=== PATIENT | female | born 1960 | race Caucasian/White ===

== ENCOUNTER 2019-07-10 19:08 | Emergency (ER) | payer MEDICARE, SELFPAY ==
[2019-07-10 19:25] VITALS: BP 159/87; PULSE 70; RESP 16; TEMP 37.1; O2SAT 97
--- NOTE | 2019-07-10 20:10 | ED.GENADULT ---
HPI - General Adult General Chief complaint: Upper Respiratory Infection Stated complaint: Sinus/Drainage/Sore Throat/Cough/Wheezing Time Seen by Provider: 07/10/19 20:05 Source: patient and RN notes reviewed Mode of arrival: ambulatory Limitations: no limitations History of Present Illness HPI narrative: 58-year-old female presents with complains of upper respiratory infection symptoms, dry cough, wheezing, intermittent dyspnea, intermittent headache (not the worst of his life) for 3 days. History of COPD. Motrin (last today at 13:00/14:00), Albuterol, and Singulair with some relief. Constant dry cough with intermittent productive cough (yellow phlegm). No chest congestion. Rhinorrhea and nasal congestion. Sore throat. Pain bilaterally. No high fevers, drooling, neck or throat swelling. No chest pain. Exacerbation factors consist of smoke exposure. Denies nausea, vomiting, and abdominal pain. Tolerating liquids well. Menopausal. Some parts of this dictation were generated by voice recognition software and may contain typographical and/or grammatical inaccuracies. Related Data Home Medications Medication Instructions Recorded Confirmed aripiprazole 5 mg tablet 5 mg PO DAILY 03/25/19 07/10/19 citalopram 40 mg tablet 40 mg PO DAILY 03/25/19 07/10/19 famotidine 20 mg tablet 20 mg PO BID tablet 03/25/19 07/10/19 fluticasone 500 mcg-salmeterol 50 1 inhalation INHALATION Q12H 03/25/19 07/10/19 mcg/dose blistr powdr for inhalation guselkumab 100 mg/mL subcutaneous 100 mg SUB-Q .COMPLEX 03/25/19 07/10/19 auto-injector metoprolol succinate 100 mg 100 mg PO DAILY 03/25/19 07/10/19 tablet,extended release 24 hr montelukast 10 mg tablet 10 mg PO DAILY 03/25/19 07/10/19 omeprazole magnesium 20 mg 20 mg PO DAILY 03/25/19 07/10/19 tablet,delayed release quetiapine 100 mg tablet 100 mg PO DAILY tablet 03/25/19 07/10/19 bupropion HCl 75 mg PO DAILY 07/10/19 07/10/19 norethindrone ac-eth estradiol 1 tablet DAILY 07/10/19 07/10/19 [Fyavolv] Allergies Allergy/AdvReac Type Severity Reaction Status Date / Time Penicillins Allergy Unknown Unknown Verified 07/10/19 19:26 Review of Systems Review of Systems: Narrative: CONSTITUTIONAL: Denies fever, chills, sweats. EYES: Denies visual changes, redness, discharge. ENT: Complains of rhinorrhea, congestion, sinus pressure and congestion, sore throat. Denies otalgia. CARDIOVASCULAR: Denies chest pain, palpitations, edema. RESPIRATORY: Complains of dyspnea, wheezing, cough, intermittent productive cough. GASTROINTESTINAL: Denies abdominal pain, nausea, vomiting, diarrhea. GENITOURINARY: Denies dysuria, hematuria, abnormal discharge. SKIN: Denies rash or itching. MUSCULOSKELETAL: Denies acute back pain, joint pain, or myalgia. NEUROLOGIC: Denies numbness or focal weakness. Complains of intermittent [place]. PSYCHIATRIC: Denies anxiety or depression. All other systems reviewed are negative, except as documented in HPI and below. PMFSH Past Medical History Medical History Chronic obstructive pulmonary disease, unspecified Essential hypertension Hyperlipidemia, unspecified Major depressive disorder with single episode, in partial remission Tobacco use Surgical History Surgical History (Updated 07/15/19 @ 17:55 by RAFAEL Evans) History of cervical spinal surgery Family History Family History (Updated 07/15/19 @ 17:57 by RAFAEL Evans) Sibling Asthma Patient's sister is in good health Patient's brother is in good health Mother Cerebrovascular accident Family history of malignant neoplasm Grandparent Carcinoma of colon Hypertension Grandparent Diabetes mellitus Other Family history of coronary artery disease Family history of hepatitis Social History Social History (Updated 07/15/19 @ 17:58 by RAFAEL Evans) Smoking status: Current some day smoker Second hand tobacco smoke exposure: No Alcohol intak
[2019-07-10] MEDS: IPRATROPIUM BR 0.02% INH SOLN 0.5 MG/2.5 ML VIAL INHALATION (20:15)
[2019-07-10] MEDS: ALBUTEROL SULFATE NEB 2.5 MG/3 ML INH INHALATION (20:15)
[2019-07-10] MEDS: predniSONE 20 MG TABLET 60 MG PO (20:16)
[2019-07-10 20:38] VITALS: PULSE 76; RESP 16; O2SAT 97
[2019-07-10 20:44] VITALS: PULSE 76; RESP 16; O2SAT 97
== END 2019-07-10 20:44 | disposition home or self-care (01) ==
PROVIDERS: Emergency Provider Nurse Practitioner Family; PCP Internal Medicine
DX: H66.92 Otitis media, unspecified, left ear (principal); J40 Bronchitis, not specified as acute or chronic; F17.200 Nicotine dependence, unspecified, uncomplicated; J44.9 Chronic obstructive pulmonary disease, unspecified; I10 Essential (primary) hypertension; E78.5 Hyperlipidemia, unspecified; F32.4 Major depressive disorder, single episode, in partial remission
CPT/HCPCS: 94640; 99213; G0463; J7512

== ENCOUNTER 2020-06-05 02:29 | Outpatient (CLI) | payer MEDICARE, SELFPAY ==
[2020-06-05 17:23] LABS: SARS-CoV-2 RNA PCR Negative
== END 2020-06-05 02:30 | disposition home or self-care (01) ==
LOC: ANHCOVIDDT 02:30
PROVIDERS: PCP Nurse Practitioner; Visit Provider Internal Medicine Gastroenterology
DX: Z01.812 Encounter for preprocedural laboratory examination (principal); Z20.822 Contact with and (suspected) exposure to COVID-19
CPT/HCPCS: C9803; U0003

== ENCOUNTER 2020-06-08 01:16 | Day surgery (SDC) | payer MEDICARE, SELFPAY ==
[2020-05-27 10:09] VITALS: BMI 34.0
[2020-06-08 07:49] VITALS: BP 160/79; PULSE 72; RESP 20; TEMP 36.7; O2SAT 98
[2020-06-08] MEDS: LACTATED RINGERS 1,000 ML 150 ML IV CONT (07:59)
--- NOTE | 2020-06-08 08:21 | WPDANESEPPF ---
Anes - Initial Pre Proc Eval Procedure: Operation Date: 06/08/20 09:00 Proposed Procedures p Colonoscopy - Junaid Merchant MD Date/Time: 06/08/20 08:21 Surgeon: Junaid Merchant MD Pre Op Diagnosis: Change in Bowel Habits, Constipation Patient Data Age: 59 Gender: F Height: 5 ft 3 in Weight: 84.6 kg Last Vital Signs Temp 98.0 F 06/08/20 07:49 Pulse 72 06/08/20 07:49 Resp 20 06/08/20 07:49 BP 160/79 H 06/08/20 07:49 Pulse Ox 98 06/08/20 07:49 Allergies Allergy/AdvReac Type Severity Reaction Status Date / Time Penicillins Allergy Intermediate Rash Verified 06/08/20 07:47 Home Medications Medication Instructions Recorded Confirmed Type aripiprazole 5 mg tablet 2.5 mg PO DAILY 03/25/19 05/27/20 History citalopram 40 mg tablet 40 mg PO DAILY 03/25/19 05/27/20 History guselkumab 100 mg/mL subcutaneous 100 mg SUB-Q .COMPLEX 03/25/19 05/27/20 History auto-injector fluticasone propionate [Allergy 1 spray NASAL BID #16 ml 07/10/19 05/27/20 Rx Relief (fluticasone)] hydralazine 50 mg tablet 50 mg PO BID #180 tablet 02/27/20 05/27/20 Rx fluticasone fur. 100 mcg-umeclid See Rx Instructions INHALATION 03/24/20 05/27/20 Rx 62.5 mcg-vilant 25 mcg DAILY #28 each inhalat.powder metoprolol succinate 100 mg 100 mg PO DAILY #90 tablet 05/19/20 05/27/20 Rx tablet,extended release 24 hr albuterol sulfate 0.63 mg INHALATION Q4H PRN 05/27/20 05/27/20 History bupropion HCl 300 mg PO DAILY 05/27/20 05/27/20 History calcium carbonate-vitamin D3 1 tablet PO BID 05/27/20 05/27/20 History [Calcium 600 + D(3)] famotidine 20 mg PO BID 05/27/20 05/27/20 History melatonin 5 mg PO HS 05/27/20 05/27/20 History montelukast 10 mg PO DAILY 05/27/20 05/27/20 History multivitamin [Daily-Duane] 1 tablet PO DAILY 05/27/20 05/27/20 History norethindrone ac-eth estradiol 1 tablet PO DAILY 05/27/20 05/27/20 History trazodone 100 mg PO HS PRN 05/27/20 05/27/20 History albuterol sulfate 90 mcg/actuation See Rx Instructions .ROUTE 06/02/20 Rx aerosol inhaler .COMPLEX #18 gm Patient hx anesthesia problems: none Family hx anesthesia problems: none PMFSH Past Medical History Medical History Bowel habit changes Chronic obstructive pulmonary disease, unspecified Constipation Depression Essential hypertension Hyperlipidemia, unspecified Major depressive disorder with single episode, in partial remission Screening for lipid disorders Tobacco use Surgical History Surgical History History of cervical spinal surgery Family History Family History Sibling Asthma Patient's sister is in good health Patient's brother is in good health Mother Cerebrovascular accident Family history of malignant neoplasm Grandparent Carcinoma of colon Hypertension Grandparent Diabetes mellitus Other Family history of coronary artery disease Family history of hepatitis Social History Social History Smoking packs per day: 1.5 Smoking cigarettes per day: 30.0 Years smoked: 40 Smoking pack-years: 60.00 Smoking status: Former smoker Tobacco type: cigarettes Second hand tobacco smoke exposure: No Alcohol intake: never Substance use: former Substance use type: marijuana and crack/cocaine Last use: 2007 Living arrangements: alone Gender identity (if verbalized by the patient): Female Spiritual care concerns: No Anes - Eval Final PreProcedure Day of Procedure 06/08/20 08:21 Patient weight: obese Heart: regular rate and rhythm Lungs: clear to auscultation Airway: Mallampati scale class II Neurological: alert and oriented Last oral intake: >/= 8 hours ASA classification: III Emergent: no Anesthetic plan: proceed Anesthesia type and monitoring: general GIVS and standard monitoring Informed Co
--- NOTE | 2020-06-08 09:02 | PM.HPGS ---
History of Present Illness History of Present Illness Consent: Risks, benefits, and alternatives have been discussed and questions answered. Patient agrees to proceed with procedure. Chief complaint: Change in Bowel Habits, Constipation Narrative: Keri Golden is a 59 year old female here for colonoscopy, never had one. Review of Systems Constitutional: Constitutional: Denies headache(s) and Denies weakness Eyes: Eyes: Denies blurry vision ENT: Reports Normal hearing present, Denies headache(s) and Denies neck pain Cardiovascular: Cardiovascular: Denies chest pain and Denies dyspnea Respiratory: Respiratory: Denies dyspnea Gastrointestinal: Gastrointestinal: Reports no additional gastrointestinal complaints Genitourinary: Genitourinary: Denies dysuria Musculoskeletal: Musculoskeletal: Denies neck pain Integumentary/Breasts: Skin/Breast: Denies dry skin Neurologic: Reports Normal hearing present, Denies headache(s) and Denies weakness Psychiatric: Psychiatric: Denies anxiety Endocrine: Endocrine: Denies change in body appearance Hematologic/Lymphatic: Hematologic/Lymphatic: Denies easy bleeding Allergic/Immunologic: Allergic/Immunologic: Denies urticaria PMFSH Past Medical History Medical History Bowel habit changes Chronic obstructive pulmonary disease, unspecified Colon cancer screening Constipation Depression Essential hypertension Hyperlipidemia, unspecified Major depressive disorder with single episode, in partial remission Screening for lipid disorders Tobacco use Surgical History Surgical History History of cervical spinal surgery Family History Family History Sibling Asthma Patient's sister is in good health Patient's brother is in good health Mother Cerebrovascular accident Family history of malignant neoplasm Grandparent Carcinoma of colon Hypertension Grandparent Diabetes mellitus Other Family history of coronary artery disease Family history of hepatitis Social History Social History Smoking packs per day: 1.5 Smoking cigarettes per day: 30.0 Years smoked: 40 Smoking pack-years: 60.00 Smoking status: Former smoker Tobacco type: cigarettes Second hand tobacco smoke exposure: No Alcohol intake: never Substance use: former Substance use type: marijuana and crack/cocaine Last use: 2007 Living arrangements: alone Gender identity (if verbalized by the patient): Female Spiritual care concerns: No Meds Home Medications and Allergies Home Medications Medication Instructions Recorded Confirmed Type aripiprazole 5 mg tablet 2.5 mg PO DAILY 03/25/19 05/27/20 History citalopram 40 mg tablet 40 mg PO DAILY 03/25/19 05/27/20 History guselkumab 100 mg/mL subcutaneous 100 mg SUB-Q .COMPLEX 03/25/19 05/27/20 History auto-injector fluticasone propionate [Allergy 1 spray NASAL BID #16 ml 07/10/19 05/27/20 Rx Relief (fluticasone)] hydralazine 50 mg tablet 50 mg PO BID #180 tablet 02/27/20 05/27/20 Rx fluticasone fur. 100 mcg-umeclid See Rx Instructions INHALATION 03/24/20 05/27/20 Rx 62.5 mcg-vilant 25 mcg DAILY #28 each inhalat.powder metoprolol succinate 100 mg 100 mg PO DAILY #90 tablet 05/19/20 05/27/20 Rx tablet,extended release 24 hr albuterol sulfate 0.63 mg INHALATION Q4H PRN 05/27/20 05/27/20 History bupropion HCl 300 mg PO DAILY 05/27/20 05/27/20 History calcium carbonate-vitamin D3 1 tablet PO BID 05/27/20 05/27/20 History [Calcium 600 + D(3)] famotidine 20 mg PO BID 05/27/20 05/27/20 History melatonin 5 mg PO HS 05/27/20 05/27/20 History montelukast 10 mg PO DAILY 05/27/20 05/27/20 History multivitamin [Daily-Duane] 1 tablet PO DAILY 05/27/20 05/27/20 History norethindrone ac-eth estradiol 1 tablet PO DAILY 05/27/20 05/27/20 History trazodone 100
[2020-06-08 09:24] VITALS: BP 136/80; PULSE 81; RESP 22; O2SAT 97
[2020-06-08 09:34] VITALS: BP 140/81; PULSE 72; RESP 16; O2SAT 98
[2020-06-08 09:44] VITALS: BP 150/86; PULSE 68; RESP 20; O2SAT 98
== END 2020-06-08 10:00 | disposition home or self-care (01) ==
PROVIDERS: PCP Nurse Practitioner; Visit Provider Internal Medicine Gastroenterology
PROC: 0DJD8ZZ Inspection of Lower Intestinal Tract, Via Natural or Artificial Opening Endoscopic (ICD-10-PCS; CPT 45378; principal; 2020-06-08 09:00)
DX: Z12.11 Encounter for screening for malignant neoplasm of colon (principal); K64.8 Other hemorrhoids; K59.00 Constipation, unspecified; Z79.51 Long term (current) use of inhaled steroids; F32.9 Major depressive disorder, single episode, unspecified; I10 Essential (primary) hypertension; E78.5 Hyperlipidemia, unspecified; Z87.891 Personal history of nicotine dependence; E66.9 Obesity, unspecified; Z68.33 Body mass index [BMI] 33.0-33.9, adult; J44.9 Chronic obstructive pulmonary disease, unspecified
CPT/HCPCS: G0121; C9803; J2704; J7120; U0003

== ENCOUNTER → 2020-07-11 06:48 | Outpatient (CLI) | payer MEDICARE, SELFPAY ==
[2020-07-11 22:53] LABS: SARS-CoV-2 RNA PCR Negative
== END ==
PROVIDERS: PCP Nurse Practitioner; Visit Provider Nurse Practitioner
DX: R05 Cough (principal); Z20.822 Contact with and (suspected) exposure to COVID-19
CPT/HCPCS: C9803; U0003; U0005

== ENCOUNTER 2020-07-20 12:29 | Emergency (ER) | payer MEDICARE, SELFPAY ==
--- NOTE | ~2020-07-20 | XR_ITS ---
XR wrist LT 2V DATE: 07/20/2020 14:34 INDICATION: Postoperative reduction examination TECHNIQUE: AP and lateral views COMPARISON: July 20, 2020 left breast FINDINGS: There is near-anatomic position and alignment at the comminuted intra-articular fracture of the distal radius, with reduction of the prominent dorsal inclination of the distal radial articular surface, which is now relatively neutral. There is an anterior splint. Radiocarpal alignment is preserved.. IMPRESSION: Near-anatomic position and alignment of comminuted intra-articular fracture of distal rad ius Reviewed, dictated and finalized at location A. HER HELPER IMPRESSION: Near-anatomic position and alignment of comminuted intra-articular fracture of distal radius
--- NOTE | ~2020-07-20 | XR_ITS ---
EXAMINATION: XR wrist LT min 3V DATE: 07/20/2020 13:05 INDICATION: Severe left wrist pain and deformity post fall TECHNIQUE: Posteroanterior, oblique, and lateral views of the left wrist were obtained. COMPARISON: none FINDINGS: Comminuted intra-articular fracture of the distal left radius. One half shaft width posterior displac ement with dorsal impaction and marked posterior angulation resulting in 55 degrees dorsal tilt of th e distal articular surface. There is a 2 mm wide lucent fracture gap in the distal articular surface on the lateral projection. There is a 1.5 mm step-off along the distal articular surface evident on t he oblique projection. No other fractures identified. Intercarpal alignment appears to remain essenti ally anatomic. 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 IMPRESSION: 1. Displaced and angulated intra-articular fracture of the distal left radius. 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 NT RUBBER
[2020-07-20 12:34] VITALS: BP 132/69; PULSE 64; RESP 20; TEMP 36.6; O2SAT 96
[2020-07-20] MEDS: ONDANSETRON INJ 4 MG/2 ML VIAL IV PUSH (12:57)
[2020-07-20] MEDS: HYDROmorphone HCL INJ (*CRX) 1 MG/ML SYR IV PUSH ×2 (12:57→14:22)
[2020-07-20 13:32] VITALS: BP 120/79; PULSE 68; RESP 12; O2SAT 95
[2020-07-20 14:28] VITALS: BP 137/85; PULSE 70; RESP 16; O2SAT 96
--- NOTE | 2020-07-20 14:43 | ED.GENADULT ---
HPI - General Adult General Chief complaint: Extremity Injury, Upper <SHEEBA Alvares Last Filed: 07/20/20 14:49> Stated complaint: Fall, Left Wrist Injury <SHEEBA Alvares Last Filed: 07/20/20 14:49> Time Seen by Provider: 07/20/20 12:32 <SHEEBA Alvares Last Filed: 07/20/20 14:49> Source: patient <SHEEBA Alvares Last Filed: 07/20/20 14:49> Mode of arrival: ambulatory <SHEEBA Alvares Last Filed: 07/20/20 14:49> History of Present Illness HPI narrative: Patient is a 59-year-old female who presents to emergency department for evaluation of left wrist deformity injury that occurred just prior to arrival after slipping on a piece of plastic at work patient presents with deformity and pain of the left wrist worse with any activity or movement patient denies other injuries or complaints has not had anything for pain <SHEEBA Alvares Last Filed: 07/20/20 14:49> Related Data Home medications: Home Medications Medication Instructions Recorded Confirmed aripiprazole 5 mg tablet 2.5 mg PO DAILY 03/25/19 07/09/20 citalopram 40 mg tablet 40 mg PO DAILY 03/25/19 07/09/20 guselkumab 100 mg/mL subcutaneous 100 mg SUB-Q .COMPLEX 03/25/19 07/09/20 auto-injector albuterol sulfate 0.63 mg INHALATION Q4H PRN 05/27/20 07/09/20 bupropion HCl 300 mg PO DAILY 05/27/20 07/09/20 calcium carbonate-vitamin D3 1 tablet PO BID 05/27/20 07/09/20 [Calcium 600 + D(3)] melatonin 5 mg PO HS 05/27/20 07/09/20 montelukast 10 mg PO DAILY 05/27/20 07/09/20 multivitamin [Daily-Duane] 1 tablet PO DAILY 05/27/20 07/09/20 norethindrone ac-eth estradiol 1 tablet PO DAILY 05/27/20 07/09/20 trazodone 100 mg PO HS PRN 05/27/20 07/09/20 <SHEEBA Alvraes Last Filed: 07/20/20 14:49> Allergies/adverse reactions: Allergies Allergy/AdvReac Type Severity Reaction Status Date / Time Penicillins Allergy Intermediate Rash Verified 07/20/20 12:36 <Yusuf Boyce PA-C - Last Filed: 07/20/20 14:49> Review of Systems Review of Systems: All systems reviewed & are unremarkable except as noted in HPI and below <Yusuf Boyce PA-C - Last Filed: 07/20/20 14:49> [facility] Past Medical History Medical History: Medical History Bowel habit changes Chronic obstructive pulmonary disease, unspecified Colon cancer screening Constipation Depression Essential hypertension Hyperlipidemia, unspecified Major depressive disorder with single episode, in partial remission Postmenopausal Screening for lipid disorders Tobacco use <Yusuf Boyce PA-C - Last Filed: 07/20/20 14:49> Surgical History Surgical History: Surgical History History of cervical spinal surgery <Yusuf Boyce PA-C - Last Filed: 07/20/20 14:49> Family History Family History: Family History Sibling Asthma Patient's sister is in good health Patient's brother is in good health Mother Cerebrovascular accident Family history of malignant neoplasm Grandparent Carcinoma of colon Hypertension Grandparent Diabetes mellitus Other Family history of coronary artery disease Family history of hepatitis <Yusuf Boyce PA-C - Last Filed: 07/20/20 14:49> Social History Social History: Social History Smoking packs per day: 1.5 Smoking cigarettes per day: 30.0 Years smoked: 40 Smoking pack-years: 60.00 Smoking status: Current every day smoker Tobacco type: cigarettes Second hand tobacco smoke exposure: No Alcohol intake: never Substance use: former Substance use type: marijuana and crack/cocaine Last use: 2007 Gender identity (if verbalized by the patient): Female Spiritual care concerns: No <Yusuf Boyce PA-C - Last Filed: 07/20/20 14:49> Exam Narrativ
[2020-07-20 15:00] VITALS: BP 146/86; PULSE 69; RESP 14; O2SAT 97
== END 2020-07-20 15:20 | disposition home or self-care (01) ==
PROVIDERS: Emergency Provider Emergency Medicine; PCP Internal Medicine
DX: S52.572A Other intraarticular fracture of lower end of left radius, initial encounter for closed fracture (principal); J44.9 Chronic obstructive pulmonary disease, unspecified; I10 Essential (primary) hypertension; E78.5 Hyperlipidemia, unspecified; F32.9 Major depressive disorder, single episode, unspecified; F17.210 Nicotine dependence, cigarettes, uncomplicated; W01.0XXA Fall on same level from slipping, tripping and stumbling without subsequent striking against object, initial encounter
CPT/HCPCS: 25605; 73100; 73110; 96374; 96375; 96376; 99285; A4565; J1170; J2405

== ENCOUNTER → 2020-07-24 00:25 | Outpatient (CLI) | payer MEDICARE, SELFPAY ==
[2020-07-24 17:47] LABS: SARS-CoV-2 RNA PCR Negative
== END ==
PROVIDERS: PCP Internal Medicine; Visit Provider Orthopaedic Surgery
DX: Z01.812 Encounter for preprocedural laboratory examination (principal); Z20.822 Contact with and (suspected) exposure to COVID-19
CPT/HCPCS: C9803; U0003; U0005

== ENCOUNTER 2020-07-24 08:54 | Outpatient (CLI) | payer OTHER, SELFPAY ==
--- NOTE | 2020-07-24 09:45 | ECG_ITS ---
Measurements Intervals [place] Rate: 65 P: 29 AR: 181 QRS: -58 QRSD: 102 T: 13 QT: 380 QTc: 398 Interpretive Statements SINUS RHYTHM LEFT ANTERIOR FASCICULAR BLOCK BASELINE ARTIFACT- V2 ABNORMAL ECG Electronically Signed On 07-24-2020 9:39:34 JUNIOR ART DIRECTOR by Kole Meade D.O.
== END 2020-07-24 08:55 | disposition home or self-care (01) ==
LOC: ANHSURGERY 09:00
PROVIDERS: PCP Internal Medicine; Visit Provider Orthopaedic Surgery
DX: Z01.818 Encounter for other preprocedural examination (principal); I10 Essential (primary) hypertension; R94.31 Abnormal electrocardiogram [ECG] [EKG]
CPT/HCPCS: 93005

== ENCOUNTER 2020-07-27 01:34 | Day surgery (SDC) | payer MEDICARE, SELFPAY ==
[2020-07-22 14:56] VITALS: BMI 31.2
[2020-07-27] VITALS (8 sets, daily range): BP systolic 129–154; BP diastolic 69–82; PULSE 68–85; RESP 12–21; TEMP 36.1–36.6; O2SAT 94–97
--- NOTE | ~2020-07-27 | XR_ITS ---
EXAMINATION: XR surgery orthopedic DATE: 07/27/2020 13:38 INDICATION: ORIF left wrist fracture TECHNIQUE: Frontal and lateral fluoroscopic images of the left were obtained during procedure perform ed by Dr. Rich. Radiologist was not present for the imaging or procedure. The amount of fluoroscopy t natalie used during this procedure was 0.5 minutes. COMPARISON: None. FINDINGS: Interval 4T plate and screw fixation of a previously noted comminuted likely intra-articular fracture of the distal left radius. Alignment appears near-anatomic. No new fractures identified. IMPRESSION: 1. Volar T plate and screw fixation of a comminuted intra-articular fracture of the distal left radiu s which is in near-anatomic alignment. Reviewed, dictated and finalized at location B. [employer] IMPRESSION: 1. Volar T plate and screw fixation of a comminuted intra-articular fracture of the distal left radius which is in near-anatomic alignment.
--- NOTE | 2020-07-27 07:48 | WPDANESEPPF ---
Anes - Initial Pre Proc Eval Procedure: Operation Date: 07/27/20 13:00 Proposed Procedures p Open Reduction Internal Fixation Left Distal Radius - Marcos Rich MD Date/Time: 07/27/20 07:48 Surgeon: Marcos Rich MD Pre Op Diagnosis: Left Distal Radius Fracture Patient Data Age: 59 Gender: F Height: 1.6 m Weight: 80 kg Allergies Allergy/AdvReac Type Severity Reaction Status Date / Time Penicillins Allergy Intermediate Rash Verified 07/27/20 10:31 Home Medications Medication Instructions Recorded Confirmed Type aripiprazole 5 mg tablet 2.5 mg PO DAILY 03/25/19 07/22/20 History citalopram 40 mg tablet 40 mg PO DAILY 03/25/19 07/22/20 History guselkumab 100 mg/mL subcutaneous 100 mg SUB-Q .COMPLEX 03/25/19 07/22/20 History auto-injector fluticasone propionate [Allergy 1 spray NASAL BID #16 ml 07/10/19 07/22/20 Rx Relief (fluticasone)] hydralazine 50 mg tablet 50 mg PO BID #180 tablet 02/27/20 07/22/20 Rx metoprolol succinate 100 mg 100 mg PO DAILY #90 tablet 05/19/20 07/22/20 Rx tablet,extended release 24 hr albuterol sulfate 0.63 mg INHALATION Q4H PRN 05/27/20 07/22/20 History bupropion HCl 300 mg PO DAILY 05/27/20 07/22/20 History calcium carbonate-vitamin D3 1 tablet PO BID 05/27/20 07/22/20 History [Calcium 600 + D(3)] melatonin 5 mg PO HS 05/27/20 07/22/20 History montelukast 10 mg PO DAILY 05/27/20 07/22/20 History multivitamin [Daily-Duane] 1 tablet PO DAILY 05/27/20 07/22/20 History norethindrone ac-eth estradiol 1 tablet PO DAILY 05/27/20 07/22/20 History trazodone 100 mg PO HS PRN 05/27/20 07/22/20 History fluticasone fur. 100 mcg-umeclid See Rx Instructions INHALATION 06/10/20 07/22/20 Rx 62.5 mcg-vilant 25 mcg DAILY #28 each inhalat.powder linaclotide 145 mcg capsule 145 mcg PO DAILY #90 cap 07/09/20 07/22/20 Rx methylprednisolone 4 mg tablets in See Rx Instructions PO PER PKG DIR 07/09/20 07/22/20 Rx a dose pack #21 ea doxycycline hyclate 100 mg tablet 100 mg PO BID #20 tablet 07/10/20 07/22/20 Rx hydrocodone 5 mg-acetaminophen 325 1 tablet PO Q8H PRN #20 tablet 07/22/20 07/22/20 Rx mg tablet lorazepam [Ativan] 1 mg PO DAILY PRN 07/22/20 07/22/20 History pantoprazole [Protonix] 40 mg PO QAM 07/22/20 07/22/20 History albuterol sulfate 90 mcg/actuation See Rx Instructions .ROUTE 07/27/20 Rx aerosol inhaler .COMPLEX #18 g ECG: Date of Service: 07/24/20 Procedure(s): CA 12 lead EKG Accession Number(s): [id number] cc: ~ Measurements Intervals [place] Rate: 65 P: 29 [place]: 181 QRS: -58 QRSD: 102 T: 13 QT: 380 QTc: 398 Interpretive Statements SINUS RHYTHM LEFT ANTERIOR FASCICULAR BLOCK BASELINE ARTIFACT- V2 ABNORMAL ECG Electronically Signed On 07-24-2020 9:39:34 SOFTWARE ENGINEERING ANALYST by Kole Meade D.O. Patient hx anesthesia problems: none Family hx anesthesia problems: none PMFSH Past Medical History Medical History Bowel habit changes Chronic obstructive pulmonary disease, unspecified Colon cancer screening Constipation Depression Essential hypertension Hyperlipidemia, unspecified Major depressive disorder with single episode, in partial remission Postmenopausal Screening for lipid disorders Tobacco use Surgical History Surgical History History of cervical spinal surgery Family History Family History Sibling Asthma Patient's sister is in good health Patient's brother is in good health Mother Cerebrovascular accident Family history of malignant neoplasm Grandparent Carcinoma of colon Hypertension Grandparent Diabetes mellitus Other Family history
--- NOTE | 2020-07-27 10:24 | WPDHPUPDATE1 ---
History and Physical Update Update Date/Time: 07/27/20 10:24 History and Physical has been reviewed, including an updated exam of the patient. There are NO changes in the patient's condition. Risks, benefits, and alternatives have been discussed and questions answered. Patient agrees to proceed with procedure.
[2020-07-27] MEDS: LACTATED RINGERS 1,000 ML 30 ML IV CONT ×2 (10:25→13:45)
[2020-07-27] MEDS: KETOROLAC 15 MG/ML VIAL (*BKC) IV PUSH (10:52)
[2020-07-27] MEDS: ACETAMINOPHEN 500 MG TABLET 1000 MG PO (10:52)
--- NOTE | 2020-07-27 11:51 | WPDANESPNB ---
Anes - Peripheral Nerve Block Date/Time: 07/27/20 11:51 I have discussed with the patient/family/POA the placement of a peripheral nerve block for post-operative pain management, including associated risks, benefits, complications, and side effects. Alternative methods of post-operative analgesia were detailed. Questions were solicited and answers provided to the satisfaction of the patient/family/POA. Time-Out: A pre-procedural Time-Out was completed immediately before starting the procedure and confirmed: Patient Identification, Site, Procedure, Patient Position and the Availability of Requisite Equipment. Clinical Indications: Acute post-operative pain management requested by the operative surgeon. Nerve Block Insertion Note Anes-nerve block: supraclavicular left Patient position: supine Skin prep: chlorhexidine Needle: 22 gauge, stimulating, insulated echogenic needle. Needle length: 80 mm Technique: ultrasound (in plane) Injectate: bupivacaine 0.5% with epi 5 mcg/ml (20cc) Observations: tolerated well Complications: none Procedure start time:: 1145 Procedure end time:: 1150
[2020-07-27] MEDS: ceFAZolin 2 GM/D5W 50 ML 2 GM/50 ML BAG IVPB (11:59)
--- NOTE | 2020-07-27 13:54 | PM.PROC ---
Procedure Note - Detailed Date of procedure: 07/27/20 Pre-op diagnosis: Left Distal Radius Fracture Intra-articular left distal radius fracture Post-op diagnosis: same Procedure performed: ORIF left distal radius fracture Description of procedure: The patient was identified and the proper side identified. In the preop holding area, the anesthesia team performed a left upper extremity block. She was taken back to the operating room, transferred to the or table positioning supine taking care to pad her torso and extremities. After general anesthetic induction and intubation, a nonsterile tourniquet was placed high on the left arm which was prepped and draped in the usual sterile fashion. The extremity was exsanguinated and tourniquet inflated to 200 mmHg remaining up for approximately 77 minutes. A volar longitudinal incision was made along the FCR tendon distally. The subcutaneous tissue was sharply dissected protecting neurovascular structures. The FCR tendon was released from its sheath and retracted ulnarly. This allowed for the deep fascia of the forearm to be divided longitudinally in line with the incision. Care was taken to protect the volar compartment structures as well as the radial nerve and radial vascular structures. The pronator quadratus was elevated off of the distal radius allowing for inspection of the fracture site. The fracture fragments were disimpacted and able to be realigned virtually anatomically with fluoroscopic assistance. They were secured in this position with a wide short left distal radius plate from the DVR set. The plate was applied with fluoroscopic visualization to avoid penetration of the joint and to ensure optimal hardware placement. Once the plate was secure the overall construct was assessed fluoroscopically on the AP and lateral views. The virtually anatomic reduction was held very nicely. The construct was stable. The wound was irrigated with a copious amount of sterile antibiotic solution. Skin edges were reapproximated with two 0 strata fix with tissue adhesive for the skin. Care was taken to realign her tattoo edges. Sterile dressing was applied. Tourniquet was released. A well-padded short-arm volar wrist splint was fashioned. The procedure was well tolerated. There were no known intraoperative complications. Estimated blood loss was negligible. Anesthesia: GLMA Surgeon: Marcos Rich MD Christmas Tree Farmer: James Kuo Tourniquet time (min): 77 Drains: No Packing: No Pathology: none sent Complications: No immediate complications Condition: stable Disposition: PACU
== END 2020-07-27 15:50 | disposition home or self-care (01) ==
PROVIDERS: PCP Internal Medicine; Visit Provider Orthopaedic Surgery
PROC: (CPT 25575; principal; 2020-07-27 13:00)
DX: S52.572A Other intraarticular fracture of lower end of left radius, initial encounter for closed fracture (principal); G89.18 Other acute postprocedural pain; W19.XXXA Unspecified fall, initial encounter; J44.9 Chronic obstructive pulmonary disease, unspecified; I10 Essential (primary) hypertension; E78.5 Hyperlipidemia, unspecified; F32.4 Major depressive disorder, single episode, in partial remission; F17.210 Nicotine dependence, cigarettes, uncomplicated; E66.9 Obesity, unspecified; Z68.34 Body mass index [BMI] 34.0-34.9, adult
CPT/HCPCS: 25608; 64415; A9270; C1713; J0690; J1100; J1885; J2250; J2405; J2704; J3010; J7120

== ENCOUNTER 2020-08-26 16:03 | Outpatient (CLI) | payer MEDICARE, SELFPAY ==
--- NOTE | ~2020-08-26 | US_ITS ---
EXAMINATION: US venous doppler UE DATE: 08/26/2020 16:35 INDICATION: Left upper limb swelling. TECHNIQUE: Grayscale ultrasound images without and with compression and Doppler ultrasound images of the left upper extremity veins were obtained. COMPARISON: None. FINDINGS: The visualized portions of the left internal jugular vein, subclavian vein, axillary vein, brachial v eins, basilic vein, cephalic vein, radial vein, and ulnar vein are patent. IMPRESSION: 1. No deep venous thrombosis. 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
== END 2020-08-26 16:04 | disposition home or self-care (01) ==
PROVIDERS: PCP Internal Medicine; Visit Provider Orthopaedic Surgery
DX: M79.89 Other specified soft tissue disorders (principal)
CPT/HCPCS: 93971

== ENCOUNTER 2020-08-27 10:20 | Outpatient (CLI) | payer MEDICARE, SELFPAY ==
--- NOTE | ~2020-08-27 | XR_ITS ---
EXAMINATION: XR chest 2V 08/27/2020 10:39 INDICATION: Dyspnea. PROCEDURE: 2 view chest COMPARISON: 01/24/2015 FINDINGS: The lungs are clear. The cardiomediastinal silhouette is within normal limits. There are no pleural effusions. There is no pneumothorax suspected. IMPRESSION: 1: NO ACUTE CARDIOPULMONARY DISEASE. Reviewed, dictated and finalized at location B.
== END 2020-08-27 10:21 | disposition home or self-care (01) ==
PROVIDERS: PCP Internal Medicine; Visit Provider Internal Medicine
DX: R06.00 Dyspnea, unspecified (principal)
CPT/HCPCS: 71046

== ENCOUNTER 2020-10-02 11:00 | Outpatient (RCR) | payer MEDICARE, SELFPAY ==
--- NOTE | 2020-09-30 11:45 | OTOPEVAL ---
OCCUPATIONAL THERAPY INITIAL EVALUATION REPORT 09/30/20 Thank you for referring Keri Golden to [facility].? The patient is scheduled to be seen for therapy? 2x/week for 4 weeks. Please review, sign, date and return this plan of care SHAINA. I agree with and certify that the following plan of care is medically necessary. Referring Physician Date Referring Provider: Marcos Rich MD *OT Outpatient Evaluation Start: 09/30/20 09:38 Freq: Status: Active Protocol: Document 09/30/20 09:38 AJ (Rec: 09/30/20 10:28 AJ [id number]) Therapy Assessment Status Assessment Status Assessment Status Evaluation Outpatient Past Medical History Past Medical History Source of Past Medical History Recalled from Previous Visit, Confirmed with Patient/Family Neurological History Hx Neurological Disorders No Significant History Cardiovascular History Hx Hypertension Yes Respiratory History Hx Bronchitis Yes Hx Chronic Obstructive Pulmonary Disease Yes (COPD) Gastrointestinal History Hx Gastroesophageal Reflux Disease Yes Hx Irritable Bowel Yes: CONSTIPATION-9 MONTHS Genitourinary History Hx Genitourinary Disorders No Significant History Musculoskeletal History Hx Spinal Surgery Yes: SPINAL FUSION-2010 METAL C3-4 fusion Hematological History Hx Hematological Disorders No Significant History Endocrine History Hx Endocrine Disorders No Significant History HEENT History Hx HEENT Disorders No Significant History Integumentary History Hx Psoriasis Yes Reproductive History Hx Post Menopausal Yes: AGE 56 Psychosocial History Hx Anxiety Yes Hx Depression Yes Pain History History of Any Previous or Ongoing No Significant History Instance of Pain Anesthesia History Hx Anesthesia Reactions No Significant History Other History Hx Implanted Device Yes: METAL NECK-PLATE AND SCREWS Evaluation Information Problem Diagnosis Left colles fracture/distal radius fx s/p ORIF 07/27/20 Subjective Information Patient reports functional Query Text:As Reported By Patient/ decline with being able to Family warp picker her grandchildren, pinching and pulling up pants, and difficulties making a fist. 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 Prior Level of Function Activ
--- NOTE | 2020-10-08 10:04 | PCOTNOTE ---
Patient called & cancelled scheduled appointment this date due to being sick this date. Will continue per POC at next scheduled appointment on 10/12/2020.
--- NOTE | 2020-10-12 11:23 | PCOTNOTE ---
Patient called & cancelled scheduled appointment this date due to having to work.
--- NOTE | 2020-10-15 10:18 | PCOTNOTE ---
Patient no showed and no called for occupational therapy appointment today. Called patient and left message of missed appointment, educated on next appointment for Monday10/19/2020.
--- NOTE | 2020-10-19 09:05 | PCOTNOTE ---
Patient called & cancelled scheduled appointment this date due to having car issues.
--- NOTE | 2020-10-21 10:49 | PCOTNOTE ---
Patient called and cancelled her appt tomorrow due to being out of town.
--- NOTE | 2020-10-27 10:35 | PCOTNOTE ---
Patient did not show up for scheduled appointment this date. Called patient to remind her of 's appointment.
--- NOTE | 2020-10-29 10:28 | PCOTNOTE ---
OCCUPATIONAL THERAPY DISCHARGE NOTE 10/29/20 Patient:Keri Golden Date of :1960 Patient has not returned for any further treatments since her initial evaluation 10/02/2020, therefore she will be discharged at this time. Patient?s initial visit was on 09/30/2020 09:30 and she had a total of 1 visits. She cancelled 4 treatment sessions and no-showed for 3 treatment sessions. There have been multiple attempts to contact the patient. The goals have not been addressed or assessed. Thank you for referring this patient to [facility]. Please review, sign, date and return this discharge summary SHAINA. I have been updated about the patient's current status and I agree with discharge from the above service at this time. Referring Physician Date Referring Provider: Marcos Rich MD
== END 2020-10-29 10:56 | disposition home or self-care (01) ==
LOC: ANHOT 11:00
PROVIDERS: PCP Internal Medicine; Visit Provider Orthopaedic Surgery
DX: Z47.89 Encounter for other orthopedic aftercare (principal)
CPT/HCPCS: 97018; 97110; 97165

== ENCOUNTER 2020-10-05 10:45 | Emergency (ER) | payer MEDICARE, SELFPAY ==
--- NOTE | 2020-10-05 10:51 | ED.URI ---
HPI - URI/Sore Throat General Chief Complaint: Upper Respiratory Infection Stated Complaint: cough/wheezing Time Seen by Provider: 10/05/20 10:52 Source: patient and RN notes reviewed Mode of arrival: ambulatory Limitations: no limitations History of Present Illness HPI Narrative: 59-year-old female presents to the [facility] with complaints of I have bronchitis and I can taste the infection. Also reports she believes she has a sinus infection. Patient smokes approximately a pack a day, states she gets chronic bronchitis. Has had shortness of breath, last time she used her nebulizer was last night. Denies fevers, nausea, vomiting or diarrhea. Denies chest pain and abdominal pain Related Data Home Medications Medication Instructions Recorded Confirmed aripiprazole 5 mg tablet 2.5 mg PO DAILY 03/25/19 09/29/20 citalopram 40 mg tablet 40 mg PO DAILY 03/25/19 09/29/20 guselkumab 100 mg/mL subcutaneous 100 mg SUB-Q .COMPLEX 03/25/19 09/29/20 auto-injector bupropion HCl 300 mg PO DAILY 05/27/20 09/29/20 calcium carbonate-vitamin D3 1 tablet PO BID 05/27/20 09/29/20 [Calcium 600 + D(3)] montelukast 10 mg PO DAILY 05/27/20 09/29/20 multivitamin [Daily-Duane] 1 tablet PO DAILY 05/27/20 09/29/20 norethindrone ac-eth estradiol 1 tablet PO DAILY 05/27/20 09/29/20 trazodone 100 mg PO HS PRN 05/27/20 09/29/20 lorazepam [Ativan] 1 mg PO DAILY PRN 07/22/20 09/29/20 pantoprazole [Protonix] 40 mg PO QAM 07/22/20 09/29/20 vnwpkmwllay-vvyutpzvl-mtqlgaes INHALATION 10/05/20 [Trelegy Ellipta] levalbuterol tartrate INHALATION 10/05/20 Allergies Allergy/AdvReac Type Severity Reaction Status Date / Time Penicillins Allergy Intermediate Rash Verified 08/27/20 09:16 Review of Systems Review of Systems: All systems reviewed & are unremarkable except as noted in HPI and below Constitutional: Constitutional: Reports as per HPI, Denies fatigue and Denies fever(s) ENT: Reports as per HPI, Denies dizziness, Reports nasal congestion and Denies sore throat Cardiovascular: Cardiovascular: Reports no additional cardiovascular complaints and Denies chest pain Respiratory: Respiratory: Reports as per HPI, Reports chest congestion, Reports cough, Denies dyspnea and Reports wheezing Gastrointestinal: Gastrointestinal: Reports no additional gastrointestinal complaints, Denies abdominal pain, Denies nausea and Denies vomiting Musculoskeletal: Musculoskeletal: Reports no additional musculoskeletal complaints, Denies back pain, Denies myalgias, Denies arthralgias and Denies joint swelling Integumentary/Breasts: Skin/Breast: Reports system reviewed and no additional complaints, except as docu Neurologic: Reports as per HPI and Reports headache(s) PMFSH Past Medical History Medical History Bowel habit changes Chronic obstructive pulmonary disease, unspecified Colon cancer screening Constipation Depression Essential hypertension Hyperlipidemia, unspecified Major depressive disorder with single episode, in partial remission Postmenopausal Screening for lipid disorders Tobacco use Surgical History Surgical History Distal radius fracture, left ORIF July 27, 2020 History of cervical spinal surgery Family History Family History Sibling Asthma Patient's sister is in good health Patient's brother is in good health Mother Cerebrovascular accident Family history of malignant neoplasm Grandparent Carcinoma of colon Hypertension Grandparent Diabetes mellitus Other Family history of coronary artery disease Family history of hepatitis Social History Social History Smoking packs per day: 1 Smoking cigarettes per day: 20.0 Years smoked: 40 Smoking pack-years: 40.00 Smoking status: Current every day smoker Tobacco type: cigarettes Second hand tobacco smoke exposure: No S
[2020-10-05 10:54] VITALS: BP 149/86; PULSE 73; RESP 16; TEMP 36.6; O2SAT 98
[2020-10-05] MEDS: IPRATROPIUM BR 0.02% INH SOLN 0.5 MG/2.5 ML VIAL INHALATION (11:05)
[2020-10-05] MEDS: ALBUTEROL SULFATE NEB 2.5 MG/3 ML INH INHALATION (11:05)
[2020-10-05 11:13] VITALS: BP 149/86; PULSE 73; RESP 16; TEMP 36.6; O2SAT 98
== END 2020-10-05 12:11 | disposition home or self-care (01) ==
PROVIDERS: Emergency Provider Nurse Practitioner; PCP Internal Medicine
DX: J40 Bronchitis, not specified as acute or chronic (principal); F17.210 Nicotine dependence, cigarettes, uncomplicated; I10 Essential (primary) hypertension; E78.5 Hyperlipidemia, unspecified; F32.9 Major depressive disorder, single episode, unspecified
CPT/HCPCS: 94640; 99213; G0463

== ENCOUNTER 2020-10-24 09:28 | Emergency (ER) | payer MEDICARE, SELFPAY ==
[2020-10-24 09:37] VITALS: BP 149/85; PULSE 74; RESP 18; TEMP 36.7; O2SAT 98
--- NOTE | 2020-10-24 09:49 | ED.URI ---
HPI - URI/Sore Throat General Chief Complaint: Upper Respiratory Infection Stated Complaint: Cough,Sore Throat Source: patient and RN notes reviewed Limitations: no limitations History of Present Illness HPI Narrative: The COPD patient, a smoker/occasional drinker, presents with recurrent cough. Patient states and records reveal she is had several visits here with 2 courses of steroids and 2 courses of antibiotics [azithromycin, Ceftin, & doxycycline last year] for cough. No fever, noncompliance, significant sputum changes but she does have wheeze. She had a normal noncontributory chest x-ray last month; she has had Covid vaccinations x2; no loss of taste/smell, CP, vomiting/diarrhea, S OB. Patient advised to see PMD, stop smoking and will be given Atrovent to her medical regime. Related Data Home Medications Medication Instructions Recorded Confirmed aripiprazole 5 mg tablet 2.5 mg PO DAILY 03/25/19 10/24/20 citalopram 40 mg tablet 40 mg PO DAILY 03/25/19 10/24/20 guselkumab 100 mg/mL subcutaneous 100 mg SUB-Q .COMPLEX 03/25/19 10/24/20 auto-injector bupropion HCl 300 mg PO DAILY 05/27/20 10/24/20 calcium carbonate-vitamin D3 1 tablet PO BID 05/27/20 10/24/20 [Calcium 600 + D(3)] montelukast 10 mg PO DAILY 05/27/20 10/24/20 multivitamin [Daily-Duane] 1 tablet PO DAILY 05/27/20 10/24/20 norethindrone ac-eth estradiol 1 tablet PO DAILY 05/27/20 10/24/20 trazodone 100 mg PO HS PRN 05/27/20 10/24/20 lorazepam [Ativan] 1 mg PO DAILY PRN 07/22/20 10/24/20 pantoprazole [Protonix] 40 mg PO QAM 07/22/20 10/24/20 [id number]-dkzmrtzdr-sxyuijxp 1 inh INHALATION DIRECTED 10/05/20 10/24/20 [Trelegy Ellipta] levalbuterol tartrate 1 inh INHALATION DAILY 10/05/20 10/24/20 albuterol sulfate 2 inh INHALATION DIRECTED 10/24/20 10/24/20 levalbuterol tartrate INHALATION 10/24/20 Allergies Allergy/AdvReac Type Severity Reaction Status Date / Time Penicillins Allergy Intermediate Rash Verified 08/27/20 09:16 Review of Systems Review of Systems: Narrative: General/Constitutional: No weight loss,fever Eyes: N0: Redness,discharge Ears/Nose/Throat: No: Epistaxis,ear discharge Respiratory: Denies: Hemoptysis Gastrointestinal: No Vomiting, Bleeding-rectal Skin: No Lumps, eruption Neurologic: No Focal Weakness,Sz Hematologic: Denies: Petechiae/Purpura Psychiatric: No: Suicida ideationl All Other Systems: Reviewed and Negative [facility] Past Medical History Medical History Bowel habit changes Chronic obstructive pulmonary disease, unspecified Colon cancer screening Constipation Depression Essential hypertension Hyperlipidemia, unspecified Major depressive disorder with single episode, in partial remission Postmenopausal Screening for lipid disorders Tobacco use Surgical History Surgical History Distal radius fracture, left ORIF July 27, 2020 History of cervical spinal surgery Family History Family History Sibling Asthma Patient's sister is in good health Patient's brother is in good health Mother Cerebrovascular accident Family history of malignant neoplasm Grandparent Carcinoma of colon Hypertension Grandparent Diabetes mellitus Other Family history of coronary artery disease Family history of hepatitis Social History Social History Smoking packs per day: 1 Smoking cigarettes per day: 20.0 Years smoked: 40 Smoking pack-years: 40.00 Smoking status: Current every day smoker Tobacco type: cigarettes Second hand tobacco smoke exposure: No Smoking end date: 08/12/20 Alcohol intake: never Substance use: never Substance use type: marijuana and crack/cocaine Last use: 2007 Gender identity (if verbalized by the patient): Female Spiritual care concerns: No Comments At time of signature, agree with nursing past medical, surg
== END 2020-10-24 10:04 | disposition home or self-care (01) ==
PROVIDERS: Emergency Provider Emergency Medicine; PCP Internal Medicine
DX: J44.1 Chronic obstructive pulmonary disease with (acute) exacerbation (principal); J98.01 Acute bronchospasm; F17.210 Nicotine dependence, cigarettes, uncomplicated; I10 Essential (primary) hypertension; E78.5 Hyperlipidemia, unspecified; F32.9 Major depressive disorder, single episode, unspecified
CPT/HCPCS: 99213; G0463

== ENCOUNTER 2020-10-28 07:32 | Emergency (ER) | payer MEDICARE, SELFPAY ==
[2020-10-28] VITALS (7 sets, daily range): BP systolic 152–166; BP diastolic 93–96; PULSE 72–90; RESP 18–26; TEMP 36.3; O2SAT 94–95
--- NOTE | ~2020-10-28 | XR_ITS ---
EXAMINATION: XR chest 1V portable DATE: 10/28/2020 08:03 INDICATION: Cough and shortness of breath. TECHNIQUE: frontal view of the chest was obtained. COMPARISON: Chest radiograph dated 08/27/[address] dated 09/29/2016 FINDINGS: The lungs remain clear with no focal airspace opacities, pulmonary edema, pleural effusion or pneumot horax. The cardiomediastinal silhouette is normal. Instrumented lower cervical anterior spinal fusion with interbody fusion devices and anterior plate-screw fixation. IMPRESSION: 1. No acute cardiopulmonary disease. 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
--- NOTE | 2020-10-28 07:42 | ECG_ITS ---
Measurements Intervals [place] Rate: 77 P: -19 UT: 137 QRS: -65 QRSD: 107 T: 30 QT: 358 QTc: 405 Interpretive Statements SINUS RHYTHM LEFT ANTERIOR FASCICULAR BLOCK BASELINE ARTIFACT- I, II, III, AVR, AVL, AVF, V1 ABNORMAL ECG Electronically Signed On 10-28-2020 8:54:37 CDT by Kole Meade D.O.
[2020-10-28 07:57] LABS: Basophils Percent Auto 0.4 % (0.2-1.2); Eosinophils Absolute Auto 0.1 K/mm3 (0-0.3); Eosinophils Percent Auto 0.6 % (0-4.4); Hematocrit 41.8 % (37.0-47.0); Hemoglobin 13.9 g/dL (12.0-15.0); Immature Granulocyte Absolute 0.09 K/mm3 (0.00-0.031); Immature Granulocyte Percent A 0.9 % (0-0.5); Lymphocytes Absolute Auto 2.39 K/mm3 (0.9-3.2); Lymphocytes Percent Auto 22.7 % (18.3-44.2); Mean Corpuscular HGB Conc 33.3 g/dl (32-36); Mean Corpuscular Hemoglobin 29.5 pg (26-34); Mean Corpuscular Volume 88.7 fl (80-100); Mean Platelet Volume 10.8 fl (7.4-10.4); Monocytes Absolute Auto 1.4 K/mm3 (0.1-0.6); Monocytes Percent Auto 12.8 % (2.6-8.5); Neutrophils Absolute Auto 6.6 K/mm3 (1.3-6.7); Neutrophils Percent Auto 62.6 % (45.5-73.1); Platelet Count Result 236 k/mm3 (150-375); Red Blood Count 4.71 M/mm3 (4.2-5.4); Red Cell Distribution Width 13.1 % (11.5-14.5); White Blood Count 10.5 K/mm3 (4.5-10.0)
[2020-10-28 08:09] LABS: Anion Gap 8 mmol/L (8-16); Blood Urea Nitrogen 16 mg/dL (7-17); Calcium 8.8 mg/dL (8.4-10.2); Carbon Dioxide 25 mmol/L (22-30); Chloride 107 mmol/L (98-107); Estimated CRCL calculation 57 ml/min; Estimated Glomerular Filt Rate > 60; Glucose 89 mg/dL (65-105); Potassium 3.5 mmol/L (3.4-5.0); Sodium 140 mmol/L (137-145)
--- NOTE | 2020-10-28 09:35 | PC.NURSE ---
CALLED MAIN LAB SPOKE TO KONSTANTIN TO ADD ON DDIMER [id number]
[2020-10-28] MEDS: methylPREDNISolone SOD SUCC 125 MG VIAL IV PUSH (09:41)
[2020-10-28] MEDS: IPRATROPIUM BR 0.02% INH SOLN 0.5 MG/2.5 ML VIAL 1 MG INHALATION (09:56)
[2020-10-28] MEDS: ALBUTEROL SULFATE NEB 2.5 MG/0.5 ML INH 20 MG INHALATION (09:56)
[2020-10-28 10:26] LABS: Alveolar/Arterial O2 Gradient 44.1 mmHg; Base Excess ABG 0.4 mEq/l (+/-2.0); Carboxyhemoglobin 1.2 % THb (0-2.0); Fractional Inspired Oxygen 21 %; HCO3 ABG 24.4 mEq/l (22.0-26.0); Methemoglobin ABG 0.3 %THb (0-1.5); Oxygen Content ABG 18.3 %vol (16.0-22.0); Oxygen Saturation ABG 92.1 % (95.0-100.0); PCO2 ABG 37.4 mmHg (35.0-45.0); PO2 ABG 60.8 mmHg (80.0-100.0); Reduced Hemoglobin 8.5 %THb (0-5.0); Total Hemoglobin 14.5 g/dL (12.0-18.0); pH ABG 7.432 (7.350-7.450)
[2020-10-28 10:28] LABS: Device ROOM AIR; Site Drawn LEFT BRACHIAL
[2020-10-28 10:35] LABS: D Dimer 0.27 ug/mL (<0.48)
--- NOTE | 2020-10-28 11:22 | PC.NURSE ---
Pt ambulated with steady gait, 92% on room air at start. O2 sat remained between 93%-94% for duration of assessment. Pt denies feeling SOB.
--- NOTE | 2020-10-28 12:03 | ED.GENADULT ---
HPI - General Adult General Chief complaint: Upper Respiratory Infection Stated complaint: My bronchitis is flairing up Time Seen by Provider: 10/28/20 08:52 Source: patient, family and RN notes reviewed Mode of arrival: ambulatory Limitations: no limitations History of Present Illness HPI narrative: Patient is a 59-year-old female who presents to emergency department for evaluation of continued shortness of breath with wheezing nonproductive cough has had this for 3 weeks is a smoker with history of COPD followed by primary care has been on antibiotics and other medications with no improvement patient does have a nebulizer and other inhalers at home. Related Data Home Medications Medication Instructions Recorded Confirmed aripiprazole 5 mg tablet 2.5 mg PO DAILY 03/25/19 10/24/20 citalopram 40 mg tablet 40 mg PO DAILY 03/25/19 10/24/20 guselkumab 100 mg/mL subcutaneous 100 mg SUB-Q .COMPLEX 03/25/19 10/24/20 auto-injector bupropion HCl 300 mg PO DAILY 05/27/20 10/24/20 calcium carbonate-vitamin D3 1 tablet PO BID 05/27/20 10/24/20 [Calcium 600 + D(3)] montelukast 10 mg PO DAILY 05/27/20 10/24/20 multivitamin [Daily-Duane] 1 tablet PO DAILY 05/27/20 10/24/20 norethindrone ac-eth estradiol 1 tablet PO DAILY 05/27/20 10/24/20 trazodone 100 mg PO HS PRN 05/27/20 10/24/20 lorazepam [Ativan] 1 mg PO DAILY PRN 07/22/20 10/24/20 pantoprazole [Protonix] 40 mg PO QAM 07/22/20 10/24/20 nkpvorsimpn-mxqewpfgf-wqsiyvbn 1 inh INHALATION DIRECTED 10/05/20 10/24/20 [Trelegy Ellipta] levalbuterol tartrate 1 inh INHALATION DAILY 10/05/20 10/24/20 albuterol sulfate 2 inh INHALATION DIRECTED 10/24/20 10/24/20 levalbuterol tartrate INHALATION 10/24/20 Allergies Allergy/AdvReac Type Severity Reaction Status Date / Time Penicillins Allergy Intermediate Rash Verified 10/28/20 07:48 Review of Systems Review of Systems: All systems reviewed & are unremarkable except as noted in HPI and below PMFSH Past Medical History Medical History Bowel habit changes Chronic obstructive pulmonary disease, unspecified Colon cancer screening Constipation Depression Essential hypertension Hyperlipidemia, unspecified Major depressive disorder with single episode, in partial remission Postmenopausal Screening for lipid disorders Tobacco use Surgical History Surgical History Distal radius fracture, left ORIF July 27, 2020 History of cervical spinal surgery Family History Family History Sibling Asthma Patient's sister is in good health Patient's brother is in good health Mother Cerebrovascular accident Family history of malignant neoplasm Grandparent Carcinoma of colon Hypertension Grandparent Diabetes mellitus Other Family history of coronary artery disease Family history of hepatitis Social History Social History Smoking packs per day: 1 Smoking cigarettes per day: 20.0 Years smoked: 40 Smoking pack-years: 40.00 Smoking status: Current every day smoker Tobacco type: cigarettes Second hand tobacco smoke exposure: No Smoking end date: 08/12/20 Alcohol intake: never Substance use: never Substance use type: marijuana and crack/cocaine Last use: 2007 Gender identity (if verbalized by the patient): Female Spiritual care concerns: No Exam Narrative: Exam Narrative: GENERAL: Well-appearing, well-nourished, and in no acute distress. HEAD: Normocephalic, atraumatic. EYES: PERRLA and EOMI. ENT: Nares clear, no rhinorrhea or epistaxis. Mucous membranes moist. CHEST: Diminished on auscultation. No respiratory distress. Coarse breath sounds and wheezing throughout HEART: Regular rate and rhythm. No murmur heard. Normal peripheral pulses. EXTREMITIES: Normal range of motion. No edema. SKIN: Warm, dry, no rash. NEURO: No focal d
== END 2020-10-28 12:35 | disposition home or self-care (01) ==
PROVIDERS: Emergency Medicine Emergency Medical Services; Emergency Provider Emergency Medicine; PCP Internal Medicine
DX: J44.9 Chronic obstructive pulmonary disease, unspecified (principal); J45.901 Unspecified asthma with (acute) exacerbation; I44.4 Left anterior fascicular block
CPT/HCPCS: 36415; 36600; 71045; 80048; 82375; 82805; 83050; 85025; 85380; 93005; 94640; 96374; 99284; J2930

== ENCOUNTER 2021-05-12 20:46 | Emergency (ER) | payer MEDICARE, SELFPAY ==
[2021-05-12 20:48] VITALS: BP 184/102; PULSE 82; RESP 18; TEMP 36.3; O2SAT 99
== END 2021-05-12 21:15 | disposition left against medical advice (07) ==
LOC: ANHED 21:14
PROVIDERS: PCP Family Medicine
DX: Z53.21 Procedure and treatment not carried out due to patient leaving prior to being seen by health care provider (principal)
CPT/HCPCS: 99199

== ENCOUNTER 2021-06-29 08:10 | Emergency (ER) | payer MEDICARE, SELFPAY ==
[2021-06-29 08:20] VITALS: BP 161/84; PULSE 90; RESP 18; TEMP 37.6; O2SAT 96
--- NOTE | 2021-06-29 08:26 | ED.URI ---
HPI - URI/Sore Throat General Chief Complaint: Upper Respiratory Infection Stated Complaint: Sinus Infection Time Seen by Provider: 06/29/21 08:20 Source: patient, family, RN notes reviewed and old records reviewed Mode of arrival: ambulatory Limitations: no limitations History of Present Illness HPI Narrative: 60-year-old female with a history of COPD, asthma presents with a sinus infection and bronchitis acting up. States that she used her albuterol at home. States that she has a history of pneumonia and has been wheezing for the last 3 days. Reports fever Patient states that she gets this frequently and the only antibiotic that works for her is Levaquin. MD elicited complaint: fever and nasal congestion Related Data Home Medications Medication Instructions Recorded Confirmed aripiprazole 5 mg tablet 2.5 mg PO DAILY 03/25/19 12/24/20 citalopram 40 mg tablet 40 mg PO DAILY 03/25/19 12/24/20 guselkumab 100 mg/mL subcutaneous 100 mg SUB-Q .COMPLEX 03/25/19 12/24/20 auto-injector bupropion HCl 300 mg PO DAILY 05/27/20 12/24/20 calcium carbonate-vitamin D3 1 tablet PO BID 05/27/20 12/24/20 [Calcium 600 + D(3)] multivitamin [Daily-Duane] 1 tablet PO DAILY 05/27/20 12/24/20 norethindrone ac-eth estradiol 1 tablet PO DAILY 05/27/20 12/24/20 trazodone 100 mg PO HS PRN 05/27/20 12/24/20 lorazepam [Ativan] 1 mg PO DAILY PRN 07/22/20 12/24/20 levalbuterol tartrate 1 inh INHALATION DAILY 10/05/20 12/24/20 albuterol sulfate 2 inh INHALATION DIRECTED 10/24/20 12/24/20 Allergies Allergy/AdvReac Type Severity Reaction Status Date / Time Penicillins Allergy Intermediate Rash Verified 05/12/21 20:52 Review of Systems Review of Systems: All systems reviewed & are unremarkable except as noted in HPI and below Constitutional: Constitutional: Reports as per HPI, Denies chills, Reports fever(s) and Denies headache(s) Eyes: Eyes: Reports no additional eye complaints ENT: Reports as per HPI, Denies vertigo, Denies dizziness, Denies headache(s), Denies nasal congestion and Denies sore throat Cardiovascular: Cardiovascular: Reports no additional cardiovascular complaints, Denies chest pain, Denies syncope, Denies rapid heart rate and Denies dyspnea Respiratory: Respiratory: Reports as per HPI, Reports chest congestion, Reports cough, Reports dyspnea and Reports wheezing Gastrointestinal: Gastrointestinal: Reports no additional gastrointestinal complaints, Denies abdominal pain, Denies diarrhea, Denies nausea and Denies vomiting Musculoskeletal: Musculoskeletal: Reports no additional musculoskeletal complaints and Denies numbness Integumentary/Breasts: Skin/Breast: Reports system reviewed and no additional complaints, except as docu Neurologic: Reports system reviewed and no additional complaints, except as documented, Denies vertigo, Denies dizziness, Denies syncope, Denies headache(s), Denies focal weakness and Denies numbness Psychiatric: Psychiatric: Reports no additional psychiatric complaints Allergic/Immunologic: Allergic/Immunologic: Reports no additional allergic/immunologic complaints and Denies wheezing PMFSH Past Medical History Medical History Bowel habit changes Chronic obstructive pulmonary disease, unspecified Colon cancer screening Constipation Depression Essential hypertension Hyperlipidemia, unspecified Major depressive disorder with single episode, in partial remission Postmenopausal Screening for lipid disorders Tobacco use Surgical History Surgical History Distal radius fracture, left ORIF July 27, 2020 History of cervical spinal surgery Family History Family History Sibling Asthma Patient's sister is in good health Patient's brother is in good health Mother Cerebrovascular accident Family history of malignant neoplasm Grandparent Carcinoma of colon Hypertension Grandparent Diabetes mellit
[2021-06-29] MEDS: ALBUTEROL SULFATE NEB 2.5 MG/3 ML INH INHALATION (08:40)
[2021-06-29] MEDS: predniSONE 20 MG TABLET 40 MG PO (08:40)
[2021-06-29] MEDS: IPRATROPIUM BR 0.02% INH SOLN 0.5 MG/2.5 ML VIAL INHALATION (08:40)
== END 2021-06-29 09:18 | disposition home or self-care (01) ==
PROVIDERS: Emergency Provider Nurse Practitioner; PCP Family Medicine
DX: J20.9 Acute bronchitis, unspecified (principal); F17.210 Nicotine dependence, cigarettes, uncomplicated; J44.9 Chronic obstructive pulmonary disease, unspecified; I10 Essential (primary) hypertension; E78.5 Hyperlipidemia, unspecified; F32.9 Major depressive disorder, single episode, unspecified; F41.9 Anxiety disorder, unspecified
CPT/HCPCS: 94640; 99213; G0463; J7512

== ENCOUNTER 2022-04-24 08:24 | Emergency (ER) | payer MEDICARE, SELFPAY ==
[2022-04-24 08:43] VITALS: BP 152/94; PULSE 105; RESP 20; TEMP 38.6; O2SAT 95
--- NOTE | 2022-04-24 08:44 | ED.URI ---
HPI - URI/Sore Throat General Chief Complaint: Upper Respiratory Infection Stated Complaint: SOB,Sore Throat Time Seen by Provider: 04/24/22 08:47 Source: patient and RN notes reviewed Mode of arrival: ambulatory Limitations: no limitations History of Present Illness HPI Narrative: 61-year-old female presenting for complaint of headache, body aches, sinus pressure/congestion, sore throat, cough, fever/chills. Sudden Onset the night before last. Denies shortness of breath, wheezing, nausea, vomiting, diarrhea. She is not taking anything for symptoms. She endorses a history of bronchitis and is concerned for this. She is a smoker 1 pack per day. MD elicited complaint: cough Related Data Home Medications Medication Instructions Recorded Confirmed aripiprazole 5 mg tablet (Abilify) 2.5 mg PO DAILY 03/25/19 04/24/22 guselkumab 100 mg/mL subcutaneous 100 mg subcut .COMPLEX 03/25/19 04/24/22 auto-injector (Tremfya) bupropion HCl 300 mg 24 hr tablet, 300 mg PO DAILY 05/27/20 04/24/22 extended release calcium carbonate 600 mg-vitamin 1 tablet PO BID 05/27/20 04/24/22 D3 10 mcg (400 unit) tablet (Calcium 600 + D(3)) multivitamin (Daily-Duane tablet) 1 tablet PO DAILY 05/27/20 04/24/22 norethindrone acetate 1 mg-ethinyl 1 tablet PO DAILY 05/27/20 04/24/22 estradiol 5 mcg tablet trazodone 100 mg tablet 100 mg PO HS PRN Insomnia 05/27/20 04/24/22 lorazepam 1 mg tablet (Ativan) 1 mg PO DAILY PRN anxiety 07/22/20 04/24/22 albuterol sulfate 90 mcg/actuation 2 inh inhalation DIRECTED 10/24/20 04/24/22 aerosol inhaler amlodipine 10 mg tablet 10 mg PO DAILY 01/12/22 04/24/22 lisinopril 40 mg tablet 40 mg PO DAILY 01/12/22 04/24/22 Allergies Allergy/AdvReac Type Severity Reaction Status Date / Time Penicillins Allergy Intermediate Rash Verified 04/24/22 08:33 Review of Systems Review of Systems: CONSTITUTIONAL: Endorses malaise, chills, sweats, fever EYES: Denies visual changes, redness, or discharge ENT: Reports rhinorrhea, congestion, sinus pain, otalgia, sore throat CARDIOVASCULAR: Denies chest pain, palpitations, edema RESPIRATORY: Reports cough, post nasal drainage. Denies dyspnea GASTROINTESTINAL: Denies abdominal pain, nausea, vomiting, diarrhea SKIN: Denies rash or itching MUSCULOSKELETAL: Endorses myalgia PMFSH Past Medical History Medical History Bowel habit changes Chronic obstructive pulmonary disease, unspecified Colon cancer screening Constipation De Quervain's disease (tenosynovitis) right first dorsal compartment Depression Essential hypertension Hyperlipidemia, unspecified Major depressive disorder with single episode, in partial remission Postmenopausal Screening for lipid disorders Tobacco use Surgical History Surgical History Ankle fracture, left ORIF Gutierrez 2021 Distal radius fracture, left ORIF July 27, 2020 History of cervical spinal surgery Family History Family History Sibling Asthma Patient's sister is in good health Patient's brother is in good health Mother Cerebrovascular accident Family history of malignant neoplasm Grandparent Carcinoma of colon Hypertension Grandparent Diabetes mellitus Other Family history of coronary artery disease Family history of hepatitis Social History Social History Smoking packs per day: 1 Smoking cigarettes per day: 20.0 Years smoked: 40 Smoking pack-years: 40.00 Smoking status: Current every day smoker Tobacco type: cigarettes Second hand tobacco smoke exposure: No Smoking end date: 08/12/20 Alcohol intake: never Substance use: never Substance use type: marijuana and crack/cocaine Last use: 2007 Gender identity (if verbalized by the patient): Female Spiritual care concerns: No Exam Narrative: GENERAL: Ill-ap
== END 2022-04-24 09:08 | disposition home or self-care (01) ==
PROVIDERS: Emergency Provider Nurse Practitioner Family; PCP Family Medicine
DX: J10.1 Influenza due to other identified influenza virus with other respiratory manifestations (principal); J44.9 Chronic obstructive pulmonary disease, unspecified; I10 Essential (primary) hypertension; E78.5 Hyperlipidemia, unspecified; F32.A Depression, unspecified
CPT/HCPCS: 87804; 99213; G0463

== ENCOUNTER 2022-08-21 09:47 | Emergency (ER) | payer MEDICARE, SELFPAY ==
[2022-08-21 09:56] VITALS: BP 161/96; PULSE 90; RESP 16; TEMP 37.5; O2SAT 99
--- NOTE | 2022-08-21 10:01 | ED.URI ---
HPI - URI/Sore Throat General Chief Complaint: Upper Respiratory Infection Stated Complaint: uri Time Seen by Provider: 08/21/22 10:32 Source: patient and RN notes reviewed Mode of arrival: ambulatory Limitations: no limitations History of Present Illness HPI Narrative: 61-year-old female with history of COPD presents with concern for 2 day history of general malaise, low-grade temperature, cough, nasal congestion, rhinorrhea, sore throat, body aches, chills. Reports she took a COVID test yesterday that was negative. Reports she took Carissa MURILLO elicited complaint: cough and sore throat Related Data Home Medications Medication Instructions Recorded Confirmed aripiprazole 5 mg tablet (Abilify) 2.5 mg PO DAILY 03/25/19 08/21/22 guselkumab 100 mg/mL subcutaneous 100 mg subcut .COMPLEX 03/25/19 08/21/22 auto-injector (Tremfya) bupropion HCl 300 mg 24 hr tablet, 300 mg PO DAILY 05/27/20 08/21/22 extended release calcium carbonate 600 mg-vitamin 1 tablet PO BID 05/27/20 08/21/22 D3 10 mcg (400 unit) tablet (Calcium 600 + D(3)) multivitamin (Daily-Duane tablet) 1 tablet PO DAILY 05/27/20 08/21/22 trazodone 100 mg tablet 100 mg PO HS PRN Insomnia 05/27/20 08/21/22 albuterol sulfate 90 mcg/actuation 2 inh inhalation DIRECTED 10/24/20 08/21/22 aerosol inhaler amlodipine 10 mg tablet 10 mg PO DAILY 01/12/22 08/21/22 lisinopril 40 mg tablet 40 mg PO DAILY 01/12/22 08/21/22 sennosides 8.6 mg tablet (senna) 17.2 mg PO DAILY 08/21/22 08/21/22 Allergies Allergy/AdvReac Type Severity Reaction Status Date / Time Penicillins Allergy Intermediate Rash Verified 08/21/22 10:07 Review of Systems Review of Systems: CONSTITUTIONAL: Reports malaise, chills, low-grade fever. EYES: Denies visual changes, redness, or discharge. ENT: Reports rhinorrhea, congestion, and sore throat. CARDIOVASCULAR: Denies chest pain, palpitations, or edema. RESPIRATORY: Reports cough. Denies dyspnea. GASTROINTESTINAL: Denies abdominal pain, nausea, vomiting, diarrhea SKIN: Denies rash or itching. MUSCULOSKELETAL: Reports myalgia. NEUROLOGIC: Denies headache. All systems reviewed & are unremarkable except as noted in HPI and below PMFSH Past Medical History Medical History Bowel habit changes Chronic obstructive pulmonary disease, unspecified Colon cancer screening Constipation De Quervain's disease (tenosynovitis) right first dorsal compartment Depression Essential hypertension Hyperlipidemia, unspecified Major depressive disorder with single episode, in partial remission Postmenopausal Screening for lipid disorders Tobacco use Surgical History Surgical History Ankle fracture, left ORIF Gutierrez 2021 Distal radius fracture, left ORIF July 27, 2020 History of cervical spinal surgery Family History Family History Sibling Asthma Patient's sister is in good health Patient's brother is in good health Mother Cerebrovascular accident Family history of malignant neoplasm Grandparent Carcinoma of colon Hypertension Grandparent Diabetes mellitus Other Family history of coronary artery disease Family history of hepatitis Social History Social History Smoking packs per day: 1 Smoking cigarettes per day: 20.0 Years smoked: 40 Smoking pack-years: 40.00 Smoking status: Current every day smoker Tobacco type: cigarettes Second hand tobacco smoke exposure: No Smoking end date: 08/12/20 Alcohol intake: never Substance use: never Substance use type: marijuana and crack/cocaine Last use: 2007 Living arrangements: alone Occupation/Education: occupation Gender identity (if verbalized by the patient): Female Spiritual care concerns: No Comments At time of signature, agree with nursing past medical, surgical, social and family
== END 2022-08-21 10:47 | disposition home or self-care (01) ==
PROVIDERS: Emergency Provider Nurse Practitioner; PCP Family Medicine
DX: J06.9 Acute upper respiratory infection, unspecified (principal); J44.9 Chronic obstructive pulmonary disease, unspecified; I10 Essential (primary) hypertension; E78.5 Hyperlipidemia, unspecified; F17.210 Nicotine dependence, cigarettes, uncomplicated
CPT/HCPCS: 99213; G0463

== ENCOUNTER 2023-03-19 09:40 | Outpatient (CLI) | payer MEDICARE, SELFPAY ==
--- NOTE | ~2023-03-19 | CT_ITS ---
EXAMINATION: CT lung screening DATE: 03/19/2023 10:02 INDICATION: History of tobacco dependence. TECHNIQUE: Computed tomography (CT) of the chest was performed without intravenous contrast. The dose -length product was 132.49 mGy-cm. Automated exposure control and iterative reconstruction technique were employed. COMPARISON: CT dated 09/29/2016 FINDINGS: Small pericardial effusion. No thoracic lymphadenopathy. No significant pleural effusion. 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 Liver cysts are identified. Calc ified granuloma left upper lobe. Mild emphysema. No endobronchial lesions. No pneumothorax. No suspic ious pulmonary nodules or masses. No focal airspace consolidation. Old healed left rib fracture noted . No acute osseous abnormality. Mild thoracic spondylosis. IMPRESSION: 1. Lung-RADS category 1: Negative. Continue annual screening with noncontrast low-dose chest CT in 12 months. 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 IMPRESSION: 1. Lung-RADS category 1: Negative. Continue annual screening with noncontrast l ow-dose chest CT in 12 months.
== END 2023-03-19 09:41 | disposition home or self-care (01) ==
LOC: ANHIMG 09:48
PROVIDERS: PCP Family Medicine; Visit Provider Nurse Practitioner Adult Health
DX: Z12.2 Encounter for screening for malignant neoplasm of respiratory organs (principal); Z87.891 Personal history of nicotine dependence
CPT/HCPCS: 71271

== ENCOUNTER 2023-04-21 11:06 | Emergency (ER) | payer MEDICARE, SELFPAY ==
--- NOTE | ~2023-04-21 | XR_ITS ---
EXAMINATION: XR chest 2V DATE: 04/21/2023 12:00 INDICATION: Cough TECHNIQUE: PA and lateral views of the chest are obtained. COMPARISON: 10/28/2020 FINDINGS: The lungs are free of acute opacities. No pleural effusion or pneumothorax. The cardiomedia stinal silhouette is normal. There is moderate thoracic spondylosis. There are changes of anterior fu ra of the lower cervical spine. IMPRESSION: 1. No acute cardiopulmonary abnormality. Reviewed, dictated and finalized at location F. 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
--- NOTE | 2023-04-21 11:10 | ED.URI ---
HPI - URI/Sore Throat General Chief Complaint: Upper Respiratory Infection Stated Complaint: cough,sore throat,chest hurts, COVID exposure Time Seen by Provider: 04/21/23 11:08 Source: patient Mode of arrival: ambulatory Limitations: no limitations History of Present Illness HPI Narrative: Funmi is a 62-year-old female patient presenting to the clinic today with complaints of nonproductive cough, sore throat, nasal congestion, and chest discomfort when taking breaths and coughing x2 days. She reports she has had COVID exposure. She denies any fever or chills. Denies any abnormal shortness of breath. Does have history of COPD. States the chest discomfort is about a 6/10, worse with taking breath-midsternal and is a dull ache. MD elicited complaint: cough, sore throat, nasal congestion and other (Chest discomfort) Related Data Home Medications Medication Instructions Recorded Confirmed guselkumab 100 mg/mL subcutaneous 100 mg subcut .COMPLEX 03/25/19 04/21/23 auto-injector (Tremfya) bupropion HCl 300 mg 24 hr tablet, 300 mg PO DAILY 05/27/20 04/21/23 extended release calcium carbonate 600 mg-vitamin 1 tablet PO BID 05/27/20 04/21/23 D3 10 mcg (400 unit) tablet (Calcium 600 + D(3)) multivitamin (Daily-Duane tablet) 1 tablet PO DAILY 05/27/20 04/21/23 albuterol sulfate 90 mcg/actuation 2 inh inhalation DIRECTED 10/24/20 04/21/23 aerosol inhaler amlodipine 10 mg tablet 10 mg PO DAILY 01/12/22 04/21/23 lisinopril 40 mg tablet 40 mg PO DAILY 01/12/22 04/21/23 sennosides 8.6 mg tablet (senna) 17.2 mg PO DAILY 08/21/22 04/21/23 aripiprazole 15 mg tablet 15 mg PO DIRECTED 04/21/23 04/21/23 doxepin 25 mg capsule 25 mg PO DIRECTED 04/21/23 04/21/23 Allergies Allergy/AdvReac Type Severity Reaction Status Date / Time Penicillins Allergy Intermediate Rash Verified 04/21/23 11:12 Review of Systems Review of Systems: Pertinent positives per HPI. Patient denies any fever, chills, rash, headache, visual changes, dizziness, shortness of breath, palpitations, nausea, vomiting, diarrhea, constipation, abdominal pain, or any urinary issues. [facility] Past Medical History Medical History Bowel habit changes Chronic obstructive pulmonary disease, unspecified Colon cancer screening Constipation De Quervain's disease (tenosynovitis) right first dorsal compartment Depression Essential hypertension Hyperlipidemia, unspecified Major depressive disorder with single episode, in partial remission Postmenopausal Screening for lipid disorders Tobacco use Surgical History Surgical History Ankle fracture, left ORIF Gutierrez 2021 Distal radius fracture, left ORIF July 27, 2020 History of cervical spinal surgery Family History Family History Sibling Asthma Patient's sister is in good health Patient's brother is in good health Mother Cerebrovascular accident Family history of malignant neoplasm Grandparent Carcinoma of colon Hypertension Grandparent Diabetes mellitus Other Family history of coronary artery disease Family history of hepatitis Social History Social History Smoking packs per day: 1 Smoking cigarettes per day: 20.0 Years smoked: 40 Smoking pack-years: 40.00 Smoking status: Current every day smoker Tobacco type: cigarettes Second hand tobacco smoke exposure: No Smoking end date: 08/12/20 Alcohol intake: never Substance use: never Substance use type: marijuana and crack/cocaine Last use: 2007 Living arrangements: alone Occupation/Education: occupation Gender identity (if verbalized by the patient): Female Spiritual care concerns: No Comments At the time of my signature, I reviewed and agree with the nursing past medical, surgical, social, and family history. There is no relevant
[2023-04-21 11:23] VITALS: BP 166/88; PULSE 90; RESP 18; TEMP 37.1; O2SAT 100
--- NOTE | 2023-04-21 12:11 | ECG_ITS ---
Measurements Intervals [place] Rate: 78 P: 62 AR: 174 QRS: -71 QRSD: 101 T: 58 QT: 359 QTc: 410 Interpretive Statements SINUS RHYTHM POSSIBLE LEFT ATRIAL ENLARGEMENT INCOMPLETE RIGHT BUNDLE BRANCH BLOCK LEFT ANTERIOR FASCICULAR BLOCK BASELINE ARTIFACT- I, II, III, AVL, V1 BORDERLINE T WAVE ABNORMALITY- ANTERIOR LEADS ABNORMAL ECG COMPARED TO ECG 10/28/2020 07:47:29 INCOMPLETE RIGHT BUNDLE-BRANCH BLOCK NOW PRESENT Electronically Signed On 04-21-2023 15:40:59 CUT OUT PRESS OPERATOR by Kole Meade D.O.
== END 2023-04-21 12:33 | disposition home or self-care (01) ==
PROVIDERS: Emergency Provider Nurse Practitioner Family; PCP Family Medicine
DX: B34.9 Viral infection, unspecified (principal); J06.9 Acute upper respiratory infection, unspecified; J02.9 Acute pharyngitis, unspecified; R94.31 Abnormal electrocardiogram [ECG] [EKG]; Z20.822 Contact with and (suspected) exposure to COVID-19; J44.9 Chronic obstructive pulmonary disease, unspecified; I10 Essential (primary) hypertension; E78.5 Hyperlipidemia, unspecified; F32.89 Other specified depressive episodes; Z87.891 Personal history of nicotine dependence
CPT/HCPCS: 71046; 87081; 87880; 93005; 99213; G0463

== ENCOUNTER 2023-06-05 09:09 | Emergency (ER) | payer MEDICARE, MEDICAID, SELFPAY ==
--- NOTE | ~2023-06-05 | XR_ITS ---
XR hip RT 2V w AP pelvis DATE: 06/05/2023 10:53 INDICATION: Right hip pain with ambulation. No injury. TECHNIQUE: AP pelvis. AP and lateral views of right hip. COMPARISON: None FINDINGS: No pelvic fracture or bone destruction. Normal alignment at the pubic symphysis and sacroil iac joints. Hip joint spaces are symmetric and appear relatively well preserved. No fracture or dislo cation, avascular necrosis or bone destruction of the right hip. IMPRESSION: No significant abnormality Reviewed, dictated and finalized at location B. 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
[2023-06-05 09:53] VITALS: BP 173/105; PULSE 100; RESP 18; TEMP 36.4; O2SAT 98
--- NOTE | 2023-06-05 10:26 | ED.GENADULT ---
HPI - General Adult General Chief complaint: Extremity Problem,Nontraumatic <Maryanne Roche September, [employer] - Last Filed: 06/05/23 10:31> Stated complaint: r hip pain <Maryanne Roche September, [employer] - Last Filed: 06/05/23 10:31> Time Seen by Provider: 06/05/23 11:15 <Maryanne Roche September, - Last Filed: 06/05/23 10:31> History of Present Illness HPI narrative: Keri Golden is a 62 y/o female who presents with reports of having right hip pain that started two weeks ago and now limping because of the pain. Denies fall/ injury /trauma that she is aware of. Reports pain is worse with ambulation. No fever/ chills/ wound/ rashes/ lesions Denies back pain/ no saddle paraesthesia <Maryanne Roche September, [employer] - Last Filed: 06/05/23 10:31> Related Data Home medications: Home Medications Medication Instructions Recorded Confirmed guselkumab 100 mg/mL subcutaneous 100 mg subcut .COMPLEX 03/25/19 04/21/23 auto-injector (Tremfya) bupropion HCl 300 mg 24 hr tablet, 300 mg PO DAILY 05/27/20 04/21/23 extended release calcium carbonate 600 mg-vitamin 1 tablet PO BID 05/27/20 04/21/23 D3 10 mcg (400 unit) tablet (Calcium 600 + D(3)) multivitamin (Daily-Duane tablet) 1 tablet PO DAILY 05/27/20 04/21/23 albuterol sulfate 90 mcg/actuation 2 inh inhalation DIRECTED 10/24/20 04/21/23 aerosol inhaler amlodipine 10 mg tablet 10 mg PO DAILY 01/12/22 04/21/23 lisinopril 40 mg tablet 40 mg PO DAILY 01/12/22 04/21/23 sennosides 8.6 mg tablet (senna) 17.2 mg PO DAILY 08/21/22 04/21/23 aripiprazole 15 mg tablet 15 mg PO DIRECTED 04/21/23 04/21/23 doxepin 25 mg capsule 25 mg PO DIRECTED 04/21/23 04/21/23 <Maryanne Roche September, [employer] - Last Filed: 06/05/23 10:31> Allergies/adverse reactions: Allergies Allergy/AdvReac Type Severity Reaction Status Date / Time Penicillins Allergy Intermediate Rash Verified 04/21/23 11:12 <Maryanne Jimenez - Last Filed: 06/05/23 10:31> Review of Systems Constitutional: Constitutional: Reports no additional constitutional complaints <Shane Rai MD - Last Filed: 06/05/23 19:01> Musculoskeletal: Musculoskeletal: Denies back pain, Reports arthralgias, Denies joint swelling and Denies muscle cramps <Shane Rai MD - Last Filed: 06/05/23 19:01> Neurologic: Denies focal weakness and Denies numbness <Shane Rai MD - Last Filed: 06/05/23 19:01> [facility] Past Medical History Medical History: Medical History Bowel habit changes Chronic obstructive pulmonary disease, unspecified Colon cancer screening Constipation De Quervain's disease (tenosynovitis) right first dorsal compartment Depression Essential hypertension Hyperlipidemia, unspecified Major depressive disorder with single episode, in partial remission Postmenopausal Screening for lipid disorders Tobacco use <Maryanne Roche September - Last Filed: 06/05/23 10:31> Surgical History Surgical History: Surgical History Ankle fracture, left ORIF Gutierrez 2021 Distal radius fracture, left ORIF July 27, 2020 History of cervical spinal surgery <Maryanne Jimenez - Last Filed: 06/05/23 10:31> Family History Family History: Family History Sibling Asthma Patient's sister is in good health Patient's brother is in good health Mother Cerebrovascular accident Family history of malignant neoplasm Grandparent Carcinoma of colon Hypertension Grandparent Diabetes mellitus Other Family history of coronary artery disease Family history of hepatitis <Maryanne Jimenez - Last Filed: 06/05/23 10:31> Social History Social History: Social History Smoking packs per day: 1 Smoking cigarettes per day: 20.0 Years smoked: 40 Smoking pack-years: 40.00 Smoking status: Current every day smoker Tobacco type: cigarettes
[2023-06-05] MEDS: KETOROLAC 30 MG/ML VIAL (*BKC) IM (10:56)
[2023-06-05] MEDS: HYDROcodone/acetaminophen (*CRX) 5-325 MG TABLET 1 TAB PO (10:56)
== END 2023-06-05 12:24 | disposition home or self-care (01) ==
PROVIDERS: Emergency Provider Emergency Medicine; PCP Family Medicine
DX: M25.551 Pain in right hip (principal); J44.9 Chronic obstructive pulmonary disease, unspecified; I10 Essential (primary) hypertension; E78.5 Hyperlipidemia, unspecified; F32.4 Major depressive disorder, single episode, in partial remission; Z87.891 Personal history of nicotine dependence
CPT/HCPCS: 73502; 96372; 99283; A9270; J1885

== ENCOUNTER 2023-06-19 12:59 | Emergency (ER) | payer MEDICARE, MEDICAID, SELFPAY ==
[2023-06-19 13:15] VITALS: BP 176/97; PULSE 105; RESP 16; TEMP 36.9; O2SAT 100
[2023-06-19 13:29] VITALS: BP 176/97; PULSE 105; RESP 16; TEMP 36.9; O2SAT 100
--- NOTE | 2023-06-19 13:49 | ED.EXTPRO ---
HPI - Extremity Problem General Chief complaint: Extremity Injury, Lower Stated complaint: Right Hip Pain Time Seen by Provider: 06/19/23 13:41 Source: patient and RN notes reviewed Mode of arrival: ambulatory Limitations: no limitations History of Present Illness HPI Narrative: Patient presents today complaining of pain to her right hip. She was seen in the ER at [facility] approximately 2 weeks ago and diagnosed with trochanteric bursitis. At that time she was given a Medrol Dosepak and a small quantity of hydrocodone. She has an appointment tomorrow with the specialist and states she has run out of the hydrocodone, which is the only thing that helps with her pain. She is requesting a refill. She currently rates her pain 7/10, which increases with walking. Denies numbness or tingling. Related Data Home Medications Medication Instructions Recorded Confirmed guselkumab 100 mg/mL subcutaneous 100 mg subcut .COMPLEX 03/25/19 06/19/23 auto-injector (Tremfya) bupropion HCl 300 mg 24 hr tablet, 300 mg PO DAILY 05/27/20 06/19/23 extended release calcium carbonate 600 mg-vitamin 1 tablet PO BID 05/27/20 06/19/23 D3 10 mcg (400 unit) tablet (Calcium 600 + D(3)) multivitamin (Daily-Daune tablet) 1 tablet PO DAILY 05/27/20 06/19/23 albuterol sulfate 90 mcg/actuation 2 inh inhalation DIRECTED 10/24/20 06/19/23 aerosol inhaler amlodipine 10 mg tablet 10 mg PO DAILY 01/12/22 06/19/23 lisinopril 40 mg tablet 40 mg PO DAILY 01/12/22 06/19/23 sennosides 8.6 mg tablet (senna) 17.2 mg PO DAILY 08/21/22 06/19/23 aripiprazole 15 mg tablet 15 mg PO DIRECTED 04/21/23 06/19/23 doxepin 25 mg capsule 25 mg PO DIRECTED 04/21/23 06/19/23 quetiapine 50 mg tablet 50 mg PO DAILY 06/19/23 06/19/23 semaglutide 1 mg/dose (4 mg/3 mL) 1 mg subcut WE 06/19/23 06/19/23 subcutaneous pen injector (Ozempic) vilazodone 20 mg tablet 20 mg PO DAILY 06/19/23 06/19/23 Allergies Allergy/AdvReac Type Severity Reaction Status Date / Time Penicillins Allergy Intermediate Rash Verified 06/19/23 13:15 Review of Systems Review of Systems: CONSTITUTIONAL: Denies body aches, fever, chills, or sweats. EYES: Denies visual changes, redness, or discharge. ENT: Denies rhinorrhea, congestion, sore throat, or otalgia. CARDIOVASCULAR: Denies chest pain, palpitations, or edema. RESPIRATORY: Denies cough or dyspnea. GASTROINTESTINAL: Denies abdominal pain, nausea, vomiting, or diarrhea. GENITOURINARY: Denies dysuria or hematuria. SKIN: Denies rash, itching, or wounds. MUSCULOSKELETAL: Denies back pain, or myalgia.+ right hip pain NEUROLOGIC: Denies headache, numbness, tingling, or weakness. PSYCH: Denies depression or anxiety. PMF Past Medical History Medical History Bowel habit changes Chronic obstructive pulmonary disease, unspecified Colon cancer screening Constipation De Quervain's disease (tenosynovitis) right first dorsal compartment Depression Essential hypertension Hyperlipidemia, unspecified Major depressive disorder with single episode, in partial remission Postmenopausal Screening for lipid disorders Tobacco use Surgical History Surgical History Ankle fracture, left ORIF [place] 2021 Distal radius fracture, left ORIF July 27, 2020 History of cervical spinal surgery Family History Family History Sibling Asthma Patient's sister is in good health Patient's brother is in good health Mother Cerebrovascular accident Family history of malignant neoplasm Grandparent Carcinoma of colon Hypertension Grandparent Diabetes mellitus Other Family history of coronary artery disease Family history of hepatitis Social History Social History Smoking packs per day: 1 Smoking cigarettes per day: 20.0 Years smoked: 40 Smoking
== END 2023-06-19 13:50 | disposition home or self-care (01) ==
PROVIDERS: Emergency Provider Nurse Practitioner; PCP Family Medicine
DX: M25.551 Pain in right hip (principal); Z87.891 Personal history of nicotine dependence; J44.9 Chronic obstructive pulmonary disease, unspecified; I10 Essential (primary) hypertension; E78.5 Hyperlipidemia, unspecified; F32.89 Other specified depressive episodes
CPT/HCPCS: 99212; G0463

== ENCOUNTER 2023-07-26 13:35 | Emergency (ER) | payer MEDICARE, MEDICAID, SELFPAY ==
--- NOTE | ~2023-07-26 | XR_ITS ---
EXAMINATION: XR pelvis 1-2V DATE: 07/26/2023 14:28 INDICATION: Left pelvic pain. TECHNIQUE: An anteroposterior view of the pelvis was obtained. COMPARISON: Pelvis radiograph 06/05/2023 FINDINGS: Bone alignment is normal. No fracture. There is mild osteoarthritis of the hips. There is m ild lumbar spondylosis. IMPRESSION: 1. Mild osteoarthritis of the hips. 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
[2023-07-26 13:47] VITALS: BP 184/103; PULSE 93; RESP 16; TEMP 37.5; O2SAT 99
--- NOTE | 2023-07-26 14:05 | ED.EXTPRO ---
HPI - Extremity Problem General Chief complaint: Extremity Problem,Nontraumatic Stated complaint: left side pain Time Seen by Provider: 07/26/23 14:05 Source: patient, RN notes reviewed and old records reviewed Mode of arrival: ambulatory Limitations: no limitations History of Present Illness HPI Narrative: 62 year old female who presents to express care with complaints of left hip pain since pain awoke her Monday night. Patient denies any known strain to area or any known trauma. Patient reports that she previously had some right hip pain and received an injection to her hip at her orthopedic office which helped her pain. She reports that she has been taking Tylenol which is not helping her pain. MD Complaint: other (left hip pain) Onset (ago): day(s) (2) Pain Consistency: constant Location: lower extremity (left hip region) Severity scale (1-10): 5 Quality: aching and dull Exacerbating factors: walking and other (movement) Related Data Home Medications Medication Instructions Recorded Confirmed guselkumab 100 mg/mL subcutaneous 100 mg subcut .COMPLEX 03/25/19 07/26/23 auto-injector (Tremfya) bupropion HCl 300 mg 24 hr tablet, 300 mg PO DAILY 05/27/20 07/26/23 extended release calcium carbonate 600 mg-vitamin 1 tablet PO BID 05/27/20 07/26/23 D3 10 mcg (400 unit) tablet (Calcium 600 + D(3)) multivitamin (Daily-Duane tablet) 1 tablet PO DAILY 05/27/20 07/26/23 albuterol sulfate 90 mcg/actuation 2 inh inhalation DIRECTED 10/24/20 07/26/23 aerosol inhaler amlodipine 10 mg tablet 10 mg PO DAILY 01/12/22 07/26/23 lisinopril 40 mg tablet 40 mg PO DAILY 01/12/22 07/26/23 sennosides 8.6 mg tablet (senna) 17.2 mg PO DAILY 08/21/22 07/26/23 aripiprazole 15 mg tablet 15 mg PO DIRECTED 04/21/23 07/26/23 doxepin 25 mg capsule 25 mg PO DIRECTED 04/21/23 07/26/23 quetiapine 50 mg tablet 50 mg PO DAILY 06/19/23 07/26/23 semaglutide 1 mg/dose (4 mg/3 mL) 1 mg subcut WE 06/19/23 07/26/23 subcutaneous pen injector (Ozempic) vilazodone 20 mg tablet 20 mg PO DAILY 06/19/23 07/26/23 Allergies Allergy/AdvReac Type Severity Reaction Status Date / Time Penicillins Allergy Intermediate Rash Verified 07/26/23 13:57 Review of Systems Review of Systems: CONSTITUTIONAL: Denies fever, chills, or sweats. EYES: Denies visual changes, redness, or discharge. ENT: Denies rhinorrhea, congestion, sore throat, or otalgia. CARDIOVASCULAR: Denies chest pain, palpitations, or edema. RESPIRATORY: Denies cough or dyspnea. GASTROINTESTINAL: Denies abdominal pain, nausea, vomiting, or diarrhea. GENITOURINARY: Denies dysuria or hematuria. SKIN: Denies rash or itching. MUSCULOSKELETAL: Denies back pain,positive for pain to left hip region, or myalgia. NEUROLOGIC: Denies headache, numbness, or weakness. PSYCHIATRIC: Positive for history of anxiety or depression. All systems reviewed & are unremarkable except as noted in HPI and below PMFSH Past Medical History Medical History Bowel habit changes Chronic obstructive pulmonary disease, unspecified Colon cancer screening Constipation De Quervain's disease (tenosynovitis) right first dorsal compartment Depression Essential hypertension Hyperlipidemia, unspecified Major depressive disorder with single episode, in partial remission Postmenopausal Screening for lipid disorders Tobacco use Trochanteric bursitis, right hip Surgical History Surgical History Ankle fracture, left ORIF [place] 2021 Distal radius fracture, left ORIF July 27, 2020 History of cervical spinal surgery Family History Family History Sibling Asthma Patient's sister is in good health Patient's brother is in good health Mother Cerebrovascular accident Family history of malignant neoplasm Grandparent Carcinoma of colon Hypertension Grandpa
[2023-07-26 14:53] VITALS: BP 170/100; RESP 18; O2SAT 99
== END 2023-07-26 14:55 | disposition home or self-care (01) ==
PROVIDERS: Emergency Provider Registered Nurse; PCP Family Medicine
DX: M25.552 Pain in left hip (principal); Z87.891 Personal history of nicotine dependence; J44.9 Chronic obstructive pulmonary disease, unspecified; I10 Essential (primary) hypertension; E78.5 Hyperlipidemia, unspecified; F32.A Depression, unspecified
CPT/HCPCS: 72170; 99213; G0463

== ENCOUNTER 2023-09-25 10:02 | Emergency (ER) | payer MEDICARE, SELFPAY ==
--- NOTE | ~2023-09-25 | CT_ITS ---
EXAMINATION: CT lumbar spine wo con DATE: 09/25/2023 12:03 INDICATION: Back pain TECHNIQUE: Computed tomography (CT) of the lumbar spine was performed without intravenous contrast. T he dose-length product was 1061.07 mGy-cm. Automated exposure control and iterative reconstruction te chnique were employed. COMPARISON: None FINDINGS: There is disc narrowing at L3-4, L4-5 and L5-S1. Vertebral body heights are maintained. No evidence for acute fracture or traumatic malalignment. No spondylolisthesis. There is facet hypertrop hy at L5-S1. No paraspinal soft tissue abnormality. There is atherosclerosis of the aorta without ane urysm. IMPRESSION: 1. No acute abnormality of the lumbar spine. 2: Moderate lumbar spondylosis. Reviewed, dictated and finalized at location B.
[2023-09-25 10:05] VITALS: BP 213/117; PULSE 111; RESP 18; TEMP 36.4; O2SAT 96
[2023-09-25] MEDS: ACETAMINOPHEN 500 MG TABLET 1000 MG PO (11:43)
[2023-09-25] MEDS: methylPREDNISolone SOD SUCC 125 MG VIAL IM (11:46)
[2023-09-25] MEDS: KETOROLAC (*BKC) 60 MG/2 ML VIAL IM (11:46)
--- NOTE | 2023-09-25 12:12 | ED.BACK ---
HPI - Back Pain/Injury General Chief Complaint: Back Pain/Injury Stated Complaint: back pain Time Seen by Provider: 09/25/23 10:46 Source: patient Mode of arrival: ambulatory Limitations: no limitations History of Present Illness HPI Narrative: Patient is a 62-year-old female who presents the ED with report of lower back pain. Patient reports having pain for the last 3 days. Denies any injury or strenuous activity. States pain is worse with movement, relieved with lying flat. Denies radiation of pain to abdomen or down legs. Denies numbness, saddle anesthesia, weakness, bowel or bladder incontinence, dysuria, hematuria, fevers. Has been taking Tylenol and ibuprofen with minimal relief. Related Data Home Medications Medication Instructions Recorded Confirmed guselkumab 100 mg/mL subcutaneous 100 mg subcut .COMPLEX 03/25/19 07/26/23 auto-injector (Tremfya) bupropion HCl 300 mg 24 hr tablet, 300 mg PO DAILY 05/27/20 07/26/23 extended release calcium carbonate 600 mg-vitamin 1 tablet PO BID 05/27/20 07/26/23 D3 10 mcg (400 unit) tablet (Calcium 600 + D(3)) multivitamin (Daily-Duane tablet) 1 tablet PO DAILY 05/27/20 07/26/23 albuterol sulfate 90 mcg/actuation 2 inh inhalation DIRECTED 10/24/20 07/26/23 aerosol inhaler amlodipine 10 mg tablet 10 mg PO DAILY 01/12/22 07/26/23 lisinopril 40 mg tablet 40 mg PO DAILY 01/12/22 07/26/23 sennosides 8.6 mg tablet (senna) 17.2 mg PO DAILY 08/21/22 07/26/23 aripiprazole 15 mg tablet 15 mg PO DIRECTED 04/21/23 07/26/23 doxepin 25 mg capsule 25 mg PO DIRECTED 04/21/23 07/26/23 quetiapine 50 mg tablet 50 mg PO DAILY 06/19/23 07/26/23 semaglutide 1 mg/dose (4 mg/3 mL) 1 mg subcut WE 06/19/23 07/26/23 subcutaneous pen injector (Ozempic) vilazodone 20 mg tablet 20 mg PO DAILY 06/19/23 07/26/23 Allergies Allergy/AdvReac Type Severity Reaction Status Date / Time Penicillins Allergy Intermediate Rash Verified 09/25/23 10:02 Review of Systems Review of Systems: CONSTITUTIONAL: Denies fever, chills, or sweats. GASTROINTESTINAL: Denies abdominal pain, nausea, vomiting, or diarrhea. GENITOURINARY: Denies incontinence, dysuria or hematuria. MUSCULOSKELETAL: See HPI. NEUROLOGIC: Denies headache, dizziness, numbness, or weakness. All systems reviewed & are unremarkable except as noted in HPI and below PMFSH Past Medical History Medical History Bowel habit changes Chronic obstructive pulmonary disease, unspecified Colon cancer screening Constipation De Quervain's disease (tenosynovitis) right first dorsal compartment Depression Essential hypertension Hyperlipidemia, unspecified Major depressive disorder with single episode, in partial remission Postmenopausal Screening for lipid disorders Tobacco use Trochanteric bursitis, right hip Surgical History Surgical History Ankle fracture, left ORIF [place] 2021 Distal radius fracture, left ORIF July 27, 2020 History of cervical spinal surgery Family History Family History Sibling Asthma Patient's sister is in good health Patient's brother is in good health Mother Cerebrovascular accident Family history of malignant neoplasm Grandparent Carcinoma of colon Hypertension Grandparent Diabetes mellitus Other Family history of coronary artery disease Family history of hepatitis Social History Social History Smoking packs per day: 1 Smoking cigarettes per day: 20.0 Years smoked: 40 Smoking pack-years: 40.00 Smoking status: Current every day smoker Tobacco type: cigarettes Second hand tobacco smoke exposure: No Smoking end date: 08/12/20 Alcohol intake: never Substance use: never Substance use type: marijuana and crack/cocaine Last use:
[2023-09-25 12:22] VITALS: BP 175/97; PULSE 67; RESP 14; O2SAT 99
== END 2023-09-25 12:50 | disposition home or self-care (01) ==
PROVIDERS: Emergency Provider Physician Assistant; PCP Family Medicine
DX: M47.816 Spondylosis without myelopathy or radiculopathy, lumbar region (principal); S39.012A Strain of muscle, fascia and tendon of lower back, initial encounter; I10 Essential (primary) hypertension; E78.5 Hyperlipidemia, unspecified; J44.9 Chronic obstructive pulmonary disease, unspecified; F32.4 Major depressive disorder, single episode, in partial remission; Z87.891 Personal history of nicotine dependence; Z79.85 Long-term (current) use of injectable non-insulin antidiabetic drugs; X58.XXXA Exposure to other specified factors, initial encounter
CPT/HCPCS: 72131; 96372; 99284; A9270; J1885; J2919

== ENCOUNTER 2024-06-09 19:03 | Emergency (ER) | payer MEDICARE, SELFPAY ==
--- NOTE | ~2024-06-09 | XR_ITS ---
HISTORY: fall, pain COMPARISON: None TECHNIQUE: 2 views of the right humerus were performed FINDINGS: Acute, comminuted, impacted, right humeral head/neck fracture is identified with significant overlap of the fracture fragments. IMPRESSION: Acute, comminuted impacted right humerus fracture, as detailed above Reviewed, dictated and finalized at location A. 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
[2024-06-09 19:05] VITALS: BP 178/98; PULSE 108; RESP 20; TEMP 36.4; O2SAT 95
--- NOTE | 2024-06-09 19:24 | ED_ITS ---
HPI - Fall General Chief Complaint: Fall Stated Complaint: arm injury Time Seen by Provider: 06/09/24 19:19 Source: patient Mode of arrival: ambulatory Limitations: no limitations History of Present Illness HPI Narrative: This is a 63-year-old female that presents to the emergency department after a fall today with right upper arm pain. Reports she slipped and fell and landed on her right side. She did not hit her head or lose consciousness. She does not take any blood thinners. Reports she has not been able to lift the right arm due to pain. Denies numbness. Related Data Home Medications ?Medication ?Instructions ?Recorded ?Confirmed ?Last Taken ?Type guselkumab 100 mg/mL subcutaneous 100 mg subcut .COMPLEX 03/25/19 07/26/23 07/13/20 History auto-injector (Tremfya) bupropion HCl 300 mg 24 hr tablet, 300 mg PO DAILY 05/27/20 07/26/23 06/07/20 History extended release calcium 600 mg (as 1 tablet PO BID 05/27/20 07/26/23 06/07/20 History carbonate)-vitamin D3 10 mcg (400 unit) tablet (Calcium 600 + D(3)) multivitamin (Daily-Duane tablet) 1 tablet PO DAILY 05/27/20 07/26/23 06/07/20 History albuterol sulfate 90 mcg/actuation 2 inh inhalation DIRECTED 10/24/20 07/26/23 Unknown History aerosol inhaler amlodipine 10 mg tablet 10 mg PO DAILY 01/12/22 07/26/23 Unknown History lisinopril 40 mg tablet 40 mg PO DAILY 01/12/22 07/26/23 Unknown History sennosides 8.6 mg tablet (senna) 17.2 mg PO DAILY 08/21/22 07/26/23 Unknown History aripiprazole 15 mg tablet 15 mg PO DIRECTED 04/21/23 07/26/23 Unknown History doxepin 25 mg capsule 25 mg PO DIRECTED 04/21/23 07/26/23 Unknown History quetiapine 50 mg tablet 50 mg PO DAILY 06/19/23 07/26/23 Unknown History semaglutide 1 mg/dose (4 mg/3 mL) 1 mg subcut WE 06/19/23 07/26/23 Unknown History subcutaneous pen injector (Ozempic) vilazodone 20 mg tablet 20 mg PO DAILY 06/19/23 07/26/23 Unknown History Allergies Allergy/AdvReac Type Severity Reaction Status Date / Time Penicillins Allergy Intermediate Rash Verified 09/25/23 10:02 Review of Systems Review of Systems: CONSTITUTIONAL: Denies fever MUSCULOSKELETAL: Reports joint pain, and myalgia. NEUROLOGIC: Denies numbness, or weakness. All systems reviewed & are unremarkable except as noted in HPI and below PMFSH Past Medical History Medical History Bowel habit changes Chronic obstructive pulmonary disease, unspecified Colon cancer screening Constipation De Quervain's disease (tenosynovitis) right first dorsal compartment Depression Essential hypertension Hyperlipidemia, unspecified Major depressive disorder with single episode, in partial remission Postmenopausal Screening for lipid disorders Tobacco use Trochanteric bursitis, right hip Surgical History Surgical History Ankle fracture, left ORIF [place] 2021 Distal radius fracture, left ORIF July 27, 2020 History of cervical spinal surgery Family History Family History Sibling Asthma Patient's sister is in good health Patient's brother is in good health Mother Cerebrovascular accident Family history of malignant neoplasm Grandparent Carcinoma of colon Hypertension Grandparent Diabetes mellitus Other Family history of coronary artery disease Family history of hepatitis Social History Social History Smoking packs per day: 1 Smoking cigarettes per day: 20.0 Years smoked: 40 Smoking pack-years: 40.00 Smoking status: Current every day smoker Tobacco type: cigarettes Second hand tobacco smoke exposure: No Smoking end date: 08/12/20 Alcohol intake: never Substance use: never Substance use type: marijuana and crack/cocaine Last use: 2007 Living arrangements: alone Occupation/Education: occupation Gender identity (if verbalized by the patient): Female Spiritual care concerns: No Exam Narrative: GENERAL: Well-appearing, well-nourished, and in no acute distress. HEAD: Normocephalic, atraumatic. EYES: EOMI. CHEST: No respiratory distress. HEART: Regular rate EXTREMITIES: Decreased active range of motion in the right shoulder with edema and bruising noted to the right upper arm. Normal radial pulse. Normal sensation SKIN: Warm, dry, no rash. NEURO: No focal deficits. Alert and oriented x3. PSYCH: Normal mood and affect Course Course Emergency Course: Patient updated on her workup and agrees with plan of care Vital Signs Vital signs: Vital Signs Temperature 97.6 F 06/09/24 19:05 Pulse Rate 108 H 06/09/24 19:05 Respiratory Rate 06/09/24 19:05 Blood Pressure 178/98 H 06/09/24 19:05 Pulse Oximetry 95 06/09/24 19:05 Oxygen Delivery Room Air 06/09/24 19:05 Temperature 97.6 F 06/09/24 19:05 Pulse Rate 108 H 06/09/24 19:05 Respiratory Rate 06/09/24 19:05 Blood Pressure 178/98 H 06/09/24 19:05 Pulse Oximetry 95 06/09/24 19:05 Oxygen Delivery Room Air 06/09/24 19:05 Procedures Orthopedic Splinting/Casting Injury #1: Splinting/Casting Date: 06/09/24 Splinting/Casting Time: 19:37 Side: right Upper Extremity Injury Location: shoulder Splint: prefabricated Pre-Formed: sling Pre-Procedure Neuro Vascular Exam: normal Post-Procedure Neuro Vascular Exam: normal MDM - Fall MDM Narrative Medical decision making narrative: Patient presents to the emergency department for right upper arm pain after a fall today. We she is neurovascularly intact. Right humerus x-ray shows acute comminuted impacted right humerus fracture. Placed in a sling. Patient updated on her workup and agrees with plan of care. She is to follow up with Orthopedics. She was given warnings to return to the ER Differential Diagnosis Differential diagnosis: Likely dislocation of shoulder region and other (proximal humerus fracture) Imaging Data Radiologist's impression: ITS Impressions Humerus X-Ray 06/09/24 20:01 IMPRESSION: Acute, comminuted impacted right humerus fracture, as detailed above Critical Care Time Critical Care Time Critical Care Time: No Discharge Plan Discharge Clinical Impression: Fracture of proximal end of humerus Qualifiers: Encounter type: initial encounter Fracture type: closed Fracture morphology: unspecified fracture morphology Laterality: right Qualified Code(s): S42.201A - Unspecified fracture of upper end of right humerus, initial encounter for closed fracture Patient Disposition: Home, Self-Care Condition: Stable Instructions: Proximal Humerus Fracture (ED) Additional Instructions: Return to the ER if you experience fever, redness and swelling of your extremity, numbness or any other symptoms that are concerning to you Wear sling. No weight on the affected extremity. Ice and elevate extremity. [id number] pain medication as needed. Prescribed pain medication as needed Follow up with Orthopedics for further care. Patient Language: Gabonese Prescriptions: New hydrocodone-acetaminophen 5-325 mg tablet 1 tablet PO Q6H PRN (Reason: pain) Qty: 20 0RF No Action albuterol sulfate 90 mcg/actuation HFA aerosol inhaler 2 inh INHALATION DIRECTED meloxicam 15 mg tablet 15 mg PO DAILY Qty: 30 2RF diclofenac sodium [Voltaren Arthritis Pain] 1 % gel 2 g topical QID Qty: 100 0RF Rx Instructions: apply to left hip up to 4 times daily sennosides [senna] 8.6 mg tablet 17.2 mg PO DAILY doxepin 25 mg capsule 25 mg PO DIRECTED aripiprazole 15 mg tablet 15 mg PO DIRECTED quetiapine 50 mg tablet 50 mg PO DAILY vilazodone 20 mg tablet 20 mg PO DAILY Ozempic 1 mg/dose (4 mg/3 mL) pen injector 1 mg SUBCUT WE lisinopril 40 mg tablet 40 mg PO DAILY amlodipine 10 mg tablet 10 mg PO DAILY multivitamin [Daily-Duane] Tablet 1 tablet PO DAILY bupropion HCl 300 mg tablet extended release 24 hr 300 mg PO DAILY calcium carbonate-vitamin D3 [Calcium 600 + D(3)] 600 mg(1,500mg) -400 unit Tablet 1 tablet PO BID lidocaine 5 % adhesive patch,medicated 1 patch topical DAILY Qty: 15 0RF Rx Instructions: leave on most painful area for up to 12 hrs cyclobenzaprine 5 mg tablet 5 mg PO TID PRN (Reason: muscle spasm) Qty: 15 0RF Tremfya 100 mg/mL auto-injector 100 mg SUB-Q .COMPLEX Rx Instructions: 100 mg subcut every 8 weeks; montelukast 10 mg tablet 10 mg PO DAILY Qty: 30 0RF Rx Instructions: TAKE 1 TABLET BY MOUTH DAILY Trelegy Ellipta 100-62.5-25 mcg blister with device See Rx Instructions .ROUTE .COMPLEX Qty: 60 0RF Dose Instruction: INHALE 1 PUFF BY MOUTH DAILY Rx Instructions: INHALE 1 PUFF BY MOUTH DAILY pantoprazole [Protonix] 40 mg tablet,delayed release (DR/EC) 40 mg PO QAM Qty: 30 0RF Follow-up/Referrals: Rakesh Ibarra MD [Primary Care Provider] - Umberto Fabian MD [Physician] -
[2024-06-09] MEDS: HYDROcodone/acetaminophen (*CRX) 5-325 MG TABLET 1 TAB PO (19:38)
== END 2024-06-09 21:07 | disposition home or self-care (01) ==
PROVIDERS: Emergency Provider Physician Assistant; PCP Family Medicine
DX: S42.201A Unspecified fracture of upper end of right humerus, initial encounter for closed fracture (principal); W01.0XXA Fall on same level from slipping, tripping and stumbling without subsequent striking against object, initial encounter; F17.210 Nicotine dependence, cigarettes, uncomplicated
CPT/HCPCS: 73060; 99284; A4565; A9270

== ENCOUNTER 2024-06-13 13:13 | Outpatient (CLI) | payer MEDICARE, SELFPAY ==
--- NOTE | ~2024-06-13 | XR_ITS ---
XR humerus RT Ordering provider: Umberto Fabian MD History: . S42.309A - Unspecified fracture of shaft of humerus, unsp... . Comparison: None. FINDINGS: BONES: Fracture of the right humerus proximal metaphysis JOINT SPACES: Normal. SOFT TISSUES: Normal. IMPRESSION: Nondisplaced fracture in the right humerus proximal metaphysis. 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
--- NOTE | ~2024-06-13 | XR_ITS ---
XR shoulder RT min 2V 06/13/2024 14:56 Indication: Right shoulder pain Procedure: 4 views right shoulder Comparison: 06/09/2024 Findings: There is a comminuted impaction fracture of the right humeral head/neck with pseudosubluxat ion. No significant alteration of alignment allowing for differences of technique. No foreign bodies. Impression: 1: Stable alignment of comminuted impaction fracture right humeral head/neck. 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
== END 2024-06-13 13:14 | disposition home or self-care (01) ==
PROVIDERS: PCP Family Medicine; Visit Provider Orthopaedic Surgery
DX: S42.214A Unspecified nondisplaced fracture of surgical neck of right humerus, initial encounter for closed fracture (principal); X58.XXXA Exposure to other specified factors, initial encounter
CPT/HCPCS: 73030; 73060